=== PATIENT | female | born 1980 | race Caucasian/White ===

== ENCOUNTER → 2017-01-16 | Outpatient (CLI) | payer MEDICARE ==
--- NOTE | 2017-01-16 10:14 | XR ---
EXAMINATION TYPE: XR chest 2V DATE OF EXAM: 01/16/2017 10:09 AM COMPARISON: NONE HISTORY: Chest pain TECHNIQUE: Frontal and lateral views of the chest are obtained. FINDINGS: There is no focal air space opacity, pleural effusion, or pneumothorax seen. The cardiac silhouette size is within normal limits. The osseous structures are intact. IMPRESSION: No acute cardiopulmonary process.
== END | disposition home or self-care (01) ==
LOC: RADXRMAIN 09:57
PROVIDERS: ATTEND Family Medicine
DX: R07.89 Other chest pain (principal)
CPT/HCPCS: 71020

== ENCOUNTER → 2017-06-15 | Outpatient (CLI) | payer MEDICARE ==
--- NOTE | 2017-06-15 09:23 | XR ---
EXAMINATION TYPE: XR knee limited LT DATE OF EXAM: 06/15/2017 CLINICAL HISTORY: Left knee pain and swelling. TECHNIQUE: 2 views of the left knee are obtained. COMPARISON: None. FINDINGS: There is no acute fracture/dislocation evident in left knee. The tri-compartment joint sp aces appear within normal limits. The overlying soft tissue appears unremarkable. IMPRESSION: Unremarkable study.
== END | disposition home or self-care (01) ==
LOC: RADXRMAIN 08:54
PROVIDERS: ATTEND Family Medicine
DX: M25.562 Pain in left knee (principal)

== ENCOUNTER → 2017-07-15 | Outpatient (CLI) | payer MEDICARE ==
--- NOTE | 2017-07-15 12:30 | MR ---
EXAMINATION TYPE: MR knee LT wo con DATE OF EXAM: 07/15/2017 COMPARISON: 06/15/2017 HISTORY: Inner and outer left knee pain and swelling with bruising after sitting down and flexing her knee. Pain has persisted for 6 months. Negative radiographs. TECHNIQUE: Multiplanar, multisequence imaging of the right knee is performed without IV contrast. FINDINGS: MEDIAL MENISCUS: There is a longitudinal tear of the posterior horn of the medial meniscus extending into the meniscal body with associated 7.0 x 2.0 mm posterior meniscal cyst. Tear also extends into t he posterior root although the anterior horn appears preserved and of normal signal morphology and si ze. Associated 3 mm meniscal extrusion. LATERAL MENISCUS: Anterior and posterior horns are intact without tear. CRUCIATE LIGAMENTS: The anterior and posterior cruciate ligaments are intact and unremarkable. COLLATERAL LIGAMENTS: The medial collateral ligament and lateral collateral ligament complex are inta ct and unremarkable. EXTENSOR MECHANISM: Visualized quadriceps and patellar tendons are intact. EFFUSION: Small amount of physiologic fluid is seen. No joint effusion. POPLITEAL CYST: No significant popliteal/teran cyst. TRICOMPARTMENT SPACES: Joint spaces are maintained. CARTILAGE: Focal full-thickness cartilaginous defect of the nonweightbearing surface of the anterior lateral femoral condyle with underlying osteochondral defect, appearing stable measures 0.4 x 0.6 cm. Trochlear cartilage and medial compartment cartilage are unremarkable. BONE MARROW SIGNAL: No focal abnormal marrow signal is appreciated. OTHER: Minimal high is seen on the fluid sensitive sequence within the insertional fibers of the shelbi imembranosus relating to mild tendinopathy. IMPRESSION: 1. Longitudinal tear of the posterior horn of the medial meniscus extending into the meniscal body an d posterior root with associated 3 mm meniscal extrusion and 7 x 2 mm meniscal cyst. 2. Focal 0.4 x 0.6 cm full-thickness cartilaginous defect in the nonweightbearing surface of the ante rior lateral femoral condyle with underlying osteochondral defect, appearing stable. 3. Mild semimembranosus tendinopathy.
== END ==
LOC: RADMRIMAIN 10:30
PROVIDERS: ATTEND Family Medicine
DX: M25.562 Pain in left knee (principal); M23.222 Derangement of posterior horn of medial meniscus due to old tear or injury, left knee

== ENCOUNTER → 2017-08-21 | Outpatient (CLI) | payer MEDICARE | END | disposition home or self-care (01) | LOC: LABPAT 11:16 | PROVIDERS: ATTEND Family Medicine | DX: Z01.810 Encounter for preprocedural cardiovascular examination (principal) | CPT/HCPCS: 93005 ==

== ENCOUNTER → 2017-12-29 | Outpatient (CLI) | payer MEDICARE ==
[2017-12-29 15:19] VITALS: BP 123/77; PULSE 86; RESP 15; TEMP 98; BMI 41.0
--- NOTE | 2017-12-29 16:30 | P.HPBAR ---
Bariatric H&P - History & Physicial H&P Date: 12/29/17 History & Physicial: Visit/CC: sleeve consult Patient initial contact: Initial weight: 127.868 kg Initial weight in pounds: 281.90 Height: 5 ft 9.5 in Initial BMI: 41.0 Last weight: Current weight: 127.868 kg Current weight in pounds: 281.90 Current BMI: 41.0 [place] body weight (based on NIH guidelines): 66.905 kg Excess body weight loss: 0.0% The patient is a 37 year-old F who presents for Bariatric Assessment. Patient seen in the bariatric center today as a new patient. She is interested in sleeve gastrectomy. She went to a seminar this November. She believes the gastric bypass is too invasive for her. She has other medical issues including fibromyalgia and irritable bowel syndrome and believes the gastric bypass would interfere with those medical issues. Patient also suffers from osteoarthritis, degenerative disc disease, hypertension, and neuropathy. These medical conditions are likely in part related to her morbid obesity. She has a history of mild reflux symptoms. She was told in the past she has a hiatal hernia on endoscopy. Denies dysphagia, no history of DVT. Her primary care physician per the patient is supportive of her decision to have bariatric surgery. She does exercise daily. Her heaviest weight was 325. Review of Systems The patient denies any acute changes in vision or hearing, no dysphagia or odynophagia, no chest pain or shortness of breath, no dysuria or hematuria, no headache, no runny nose, no rectal bleeding or melena, no unexplained weight loss Past Medical History Past Medical History: Fibromyalgia, GERD/Reflux, Hyperlipidemia, Hypertension, Neurologic Disorder, Sleep Apnea/CPAP/BIPAP, Thyroid Disorder Additional Past Medical History / Comment(s): IBS, Hiatial hernia, DDD, occipital/trigeminal neuralgia, hypothyroidism, auto-immune discorder, chronic sinusitis History of Any Multi-Drug Resistant Organisms: None Reported Past Surgical History: Ablation, Cholecystectomy, Hysterectomy, Orthopedic Surgery, Tubal Ligation Additional Past Surgical History / Comment(s): Left knee arthroscopy (Aug 2017) ; Sinus surgery (2014), Uterine ablation Past Anesthesia/Blood Transfusion Reactions: Postoperative Nausea & Vomiting ( PONV) Additional Past Anesthesia/Blood Transfusion Reaction / Comm: does well with zofran prophylactic and has needed Benadryl for flushing Past Psychological History: Anxiety, Depression Smoking Status: Never smoker Past Alcohol Use History: None Reported Past Drug Use History: None Reported - Past Family History Father Family Medical History: Congestive Heart Failure (CHF), Fibromyalgia Additional Family Medical History / Comment(s): at age 42 from CHF, mental disorders Mother Family Medical History: Hypertension, Osteoarthritis (OA), Thyroid Disorder Additional Family Medical History / Comment(s): morbid obesity, bilateral knee sx d/t excess weight Surgical - Exam Vital Signs Temp Pulse Resp BP 98.0 F 86 15 123/77 12/29/17 15:11 12/29/17 15:11 12/29/17 15:11 12/29/17 15:11 Physical exam: General: Well-developed, well-nourished HEENT: Normocephalic, sclerae nonicteric Abdomen: Nontender, nondistended Extremities: No edema Neuro: Alert and oriented Bariatric Assessment & Plan (1) Morbid obesity Narrative/Plan: Clinical scenario discussed with the patient in detail. Various bariatric procedures were discussed in detail as well. Patient remains interested in sleeve gastrectomy. We'll plan preoperative upper endoscopy. Anticipate simultaneous repair of hiatal hernia at the time of sleeve gastrectomy. The risks of bleeding, infection, stenosis, stricture, leak, abscess, fistula formation, peritonitis, poor weight loss, reflux, vomiting, conversion to an open procedure, aborting sleeve gastrectomy, [place], PE, DVT, and were discussed. The patient understands and wishes to proceed. Status: Acute Bariatric Checklist Checklist: Plan: Checklist: EGD: 1. Hiatal hernia: 2. H. Pylori: HgbA1c: Vitamin D: Smoking: Never smoker Primary care physician referral: clemencia pitts Psychiatry clearance: Cardiology clearance: Sleep study: Diet journal: VTE risk score: VTE risk level: Rehab needs at discharge:
== END | disposition home or self-care (01) ==
LOC: BARWHC3 14:58
PROVIDERS: ATTEND Surgery
DX: Z48.815 Encounter for surgical aftercare following surgery on the digestive system (principal); E66.01 Morbid (severe) obesity due to excess calories; Z68.41 Body mass index [BMI] 40.0-44.9, adult
CPT/HCPCS: 99211

== ENCOUNTER 2018-01-08 12:50 | Day surgery (SDC) | payer MEDICARE ==
[2018-01-06 15:48] VITALS: BMI 40.7
[~2018-01-08 12:50] MED LIST: LACTATED RINGERS 1,000 ML IV SCH
[2018-01-08 13:25] VITALS: TEMP 97.9
[2018-01-08] MEDS ORDERED: LIDOCAINE 1% 20 ML VIAL (10MG/ML) FOR IV START INTRADERMA ONE (13:25)
[2018-01-08] MEDS ORDERED: LIDOCAINE 1% INJ 10MG/ML (20 ML MDV) ONE (14:01)
[2018-01-08] MEDS ORDERED: PROPOFOL 10 MG/ML 20 ML VIAL IV ONE (14:01)
--- NOTE | 2018-01-08 14:18 | P.GSHP ---
History of Present Illness H&P Date: 01/08/18 Chief Complaint: GERD Patient here today for upper endoscopy. She has a history of prior hiatal hernia. Some reflux at times. Seen for bariatric surgery. Past Medical History Past Medical History: Fibromyalgia, GERD/Reflux, Hyperlipidemia, Hypertension, Neurologic Disorder, Sleep Apnea/CPAP/BIPAP, Thyroid Disorder Additional Past Medical History / Comment(s): IBS, Hiatial hernia, DDD, occipital/trigeminal neuralgia, kidney stone,hypothyroidism, auto-immune disorder, chronic sinusitis History of Any Multi-Drug Resistant Organisms: None Reported Past Surgical History: Cholecystectomy, Hysterectomy, Orthopedic Surgery, Tubal Ligation, Uterine Ablation Additional Past Surgical History / Comment(s): Left knee arthroscopy (Aug 2017) ; Sinus surgery (2014) Past Anesthesia/Blood Transfusion Reactions: Postoperative Nausea & Vomiting ( PONV) Additional Past Anesthesia/Blood Transfusion Reaction / Comment(s): does well with zofran prophylaxis and has needed Benadryl for flushing Past Psychological History: Anxiety, Depression Smoking Status: Never smoker Past Alcohol Use History: None Reported Past Drug Use History: None Reported - Past Family History Mother Family Medical History: No Reported History Father Family Medical History: Congestive Heart Failure (CHF), Fibromyalgia Additional Family Medical History / Comment(s): at age 42 from CHF, mental disorders Medications and Allergies Home Medications Medication Instructions Recorded Confirmed Type Hydrochlorothiazide 25 mg PO PC-LUNCH 09/08/17 01/06/18 History Lansoprazole [Prevacid] 30 mg PO HS 09/08/17 01/06/18 History Levothyroxine Sodium [Tirosint] 100 mcg PO DAILY 09/08/17 01/06/18 History Pregabalin [Lyrica] 200 mg PO BID 09/08/17 01/06/18 History Simvastatin [Zocor] 40 mg PO HS 09/08/17 01/06/18 History Venlafaxine HCl ER [Effexor XR] 150 mg PO HS 09/08/17 01/06/18 History Cyclobenzaprine [Flexeril] 10 mg PO Q12HR PRN 12/29/17 01/06/18 History Allergies Allergy/AdvReac Type Severity Reaction Status Date / Time tide Allergy swelling Uncoded 01/06/18 15:46 and rash Surgical - Exam Vital Signs Temp Pulse Resp BP Pulse Ox 97.9 F 78 18 119/74 98 01/08/18 13:18 01/08/18 13:18 01/08/18 13:18 01/08/18 13:18 01/08/18 13:18 Physical exam: General: Well-developed, well-nourished HEENT: Normocephalic, sclerae nonicteric Abdomen: Nontender, nondistended Extremities: No edema Neuro: Alert and oriented Assessment and Plan (1) GERD (gastroesophageal reflux disease) Narrative/Plan: Will proceed with upper endoscopy at this time Current Visit: Yes Status: Acute Code(s): K21.9 - GASTRO-ESOPHAGEAL REFLUX DISEASE WITHOUT ESOPHAGITIS SNOMED Code(s): 619196321
[2018-01-08 14:32] VITALS: BP 129/66; RESP 16
--- NOTE | 2018-01-08 14:34 | P.PCN ---
Date of Procedure: 01/08/18 Procedure(s) Performed: PREOPERATIVE DIAGNOSIS: GERD, presurgical POSTOPERATIVE DIAGNOSIS: Gastritis, small moderate size hiatal hernia PROCEDURE: EGD with biopsy ANESTHESIA: MAC SURGEON: Armando Hernandez M.D. SPECIMENS: Antrum ENDOSCOPIC PROCEDURE: The patient was placed on the endoscopy table in the left decubitus position. The Olympus gastroscope was inserted into the oropharynx and passed under direct visualization to the region of the third portion of the duodenum. From that point the scope was slowly withdrawn inspecting all surfaces carefully. There were no neoplastic inflammatory or polypoid lesions throughout the duodenum. The pylorus was widely patent. The stomach was carefully inspected. There was mild gastritis present diffusely. A biopsy of the antrum took place to rule out H. pylori. Retroflexion revealed a small to moderate sized hiatal hernia. The GE junction was present about 2 cm above the diaphragmatic hiatus. The esophagus was then carefully examined. There were no neoplastic inflammatory or polypoid lesions throughout the visualized esophagus. The patient was then taken to the recovery room in stable condition per anesthesia guidelines. Recommendations: Continue antiacids. Await biopsy results. Follow-up with the bariatric center.
[2018-01-08 14:51] VITALS: PULSE 76
== END 2018-01-08 15:16 | disposition home or self-care (01) ==
LOC: ORWHC2ENDO 12:50
PROVIDERS: ATTEND Surgery
DX: K29.50 Unspecified chronic gastritis without bleeding (principal); K21.9 Gastro-esophageal reflux disease without esophagitis; K44.9 Diaphragmatic hernia without obstruction or gangrene; K58.9 Irritable bowel syndrome, unspecified; I10 Essential (primary) hypertension; F41.9 Anxiety disorder, unspecified; F32.9 Major depressive disorder, single episode, unspecified; M79.7 Fibromyalgia; E78.5 Hyperlipidemia, unspecified; G47.30 Sleep apnea, unspecified; E03.9 Hypothyroidism, unspecified; E66.01 Morbid (severe) obesity due to excess calories; G62.9 Polyneuropathy, unspecified; Z87.442 Personal history of urinary calculi; Z79.899 Other long term (current) drug therapy; Z99.89 Dependence on other enabling machines and devices; Z68.41 Body mass index [BMI] 40.0-44.9, adult
CPT/HCPCS: 81025; 88305; 43239; J2001; J2704

== ENCOUNTER → 2018-01-26 | Outpatient (CLI) | payer MEDICARE ==
[2018-01-26 13:33] VITALS: BP 110/83; PULSE 93; RESP 16; TEMP 98.1; BMI 41.0
--- NOTE | 2018-01-26 16:35 | P.BASOAP ---
Subjective Progress Note Date: 01/26/18 Principal diagnosis: Morbid obesity Patient doing well today. Underwent recent upper endoscopy. Hiatal hernia found at that time. She has her diet class on Thursday. She has a psychiatric evaluation later today. No other changes to the history and physical. Objective - Vital Signs Vital signs: Vital Signs Temp 98.1 F 01/26/18 13:30 Pulse 93 01/26/18 13:30 Resp 16 01/26/18 13:30 BP 110/83 01/26/18 13:30 Pulse Ox Intake & Output 01/25/18 01/26/18 01/26/18 18:59 06:59 18:59 Weight 127.913 kg - Exam Abdomen: Soft, nontender, nondistended Assessment/Plan (1) Morbid obesity Narrative/Plan: Await psychiatric evaluation letter. Patient will attend dietary classes next week. Reviewed the surgical consent form with her in detail today. All questions answered. Will tentatively schedule surgery in the near future. Plan: Date: 01/26/18 Initial Weight: 127.868 kg Initial BMI: 41.0 Current Weight: 127.913 kg Current BMI: 41.0 Type of Surgery: Total Volume in Band: Previous Volume: Volume Removed: Volume Added: Band Size:
== END ==
LOC: BARWHC3 13:00
PROVIDERS: ATTEND Surgery
DX: E66.01 Morbid (severe) obesity due to excess calories (principal); Z68.41 Body mass index [BMI] 40.0-44.9, adult
CPT/HCPCS: 99211

== ENCOUNTER → 2018-02-01 | Outpatient (CLI) | payer MEDICARE ==
[2018-02-01 13:29] VITALS: BMI 42.0
== END | disposition home or self-care (01) ==
LOC: BARWHC3 09:03
PROVIDERS: ATTEND Surgery
DX: E66.01 Morbid (severe) obesity due to excess calories (principal)
CPT/HCPCS: 97804

== ENCOUNTER → 2018-03-04 | Outpatient (CLI) | payer MEDICARE ==
[2018-03-04 15:23] LABS: Basophils % (A) 0 %; Eosinophils # (A) 0.1 k/uL (0-0.7); Eosinophils % (A) 1 %; HCT 39.7 % (34.0-46.0); Lymphocytes % (A) 25 %; MCH 30.7 pg (25.0-35.0); MCHC 35.3 g/dL (31.0-37.0); MCV 86.9 fL (80.0-100.0); Mean Platelet Volume 7.6; Monocytes # (A) 0.5 k/uL (0-1.0); Monocytes % (A) 4 %; Neutrophils # (A) 8.3 k/uL (1.3-7.7); Neutrophils % (A) 69 %; Platelet Count 332 k/uL (150-450); RBC 4.57 m/uL (3.80-5.40); RDW 12.6 % (11.5-15.5); WBC 12.1 k/uL (3.8-10.6)
[2018-03-04 15:36] LABS: ALT 30 U/L (9-52); AST 29 U/L (14-36); Albumin 4.7 g/dL (3.5-5.0); Alkaline Phosphatase 66 U/L (38-126); Anion Gap 16 mmol/L; Blood Urea Nitrogen 21 mg/dL (7-17); Calcium 9.9 mg/dL (8.4-10.2); Carbon Dioxide 30 mmol/L (22-30); Chloride 98 mmol/L (98-107); Glucose 88 mg/dL (74-99); Sodium 144 mmol/L (137-145); Total Bilirubin 0.4 mg/dL (0.2-1.3); Total Protein 7.5 g/dL (6.3-8.2)
== END | disposition home or self-care (01) ==
LOC: LABPAT 14:08
PROVIDERS: ATTEND Surgery
DX: Z01.818 Encounter for other preprocedural examination (principal); Z01.812 Encounter for preprocedural laboratory examination
CPT/HCPCS: 36415; 80053; 85025; 93005

== ENCOUNTER 2018-03-12 09:45 | Inpatient (IN) | payer MEDICARE ==
[2018-03-03 13:05] VITALS: BMI 39.7
--- NOTE | 2018-03-12 07:53 | P.GSHP ---
History of Present Illness H&P Date: 03/12/18 Chief Complaint: Morbid obesity Patient initially seen in the bariatric clinic earlier this year. She has suffered with morbid obesity for the majority of her life. She is interested in sleeve gastrectomy. She suffers from osteoarthritis and degenerative disc disease hypertension and neuropathy. She has mild reflux symptoms. Recent upper endoscopy showed a small to moderate-sized hiatal hernia. No history of DVT or dysphagia. Past Medical History Past Medical History: Fibromyalgia, GERD/Reflux, Hyperlipidemia, Hypertension, Neurologic Disorder, Sleep Apnea/CPAP/BIPAP, Thyroid Disorder Additional Past Medical History / Comment(s): IBS, Hiatial hernia, DDD, occipital/trigeminal neuralgia, kidney stone, auto-immune disorder, chronic sinusitis, multiple nueopathys of the extremities History of Any Multi-Drug Resistant Organisms: None Reported Past Surgical History: Cholecystectomy, Orthopedic Surgery, Tubal Ligation, Uterine Ablation Additional Past Surgical History / Comment(s): Left knee arthroscopy (Aug 2017) ; Sinus surgery (2014)kidney stone removal laparoscopic Past Anesthesia/Blood Transfusion Reactions: Postoperative Nausea & Vomiting ( PONV) Additional Past Anesthesia/Blood Transfusion Reaction / Comment(s): does well with zofran prophylaxis and has needed Benadryl for flushing Smoking Status: Never smoker - Past Family History Mother Family Medical History: No Reported History Father Family Medical History: Congestive Heart Failure (CHF), Fibromyalgia Additional Family Medical History / Comment(s): at age 42 from CHF, mental disorders Medications and Allergies Home Medications Medication Instructions Recorded Confirmed Type Hydrochlorothiazide 25 mg PO PC-LUNCH 09/08/17 03/03/18 History Lansoprazole [Prevacid] 30 mg PO HS 09/08/17 03/03/18 History Levothyroxine Sodium [Tirosint] 100 mcg PO QAM 09/08/17 03/03/18 History Pregabalin [Lyrica] 400 mg PO HS 09/08/17 03/03/18 History Simvastatin [Zocor] 40 mg PO HS 09/08/17 03/03/18 History Venlafaxine HCl ER [Effexor XR] 150 mg PO HS 09/08/17 03/03/18 History Cyclobenzaprine [Flexeril] 10 mg PO Q12HR PRN 12/29/17 03/03/18 History Biotin 5 mg PO DAILY 03/03/18 03/03/18 History Calcium Citrate 1,200 mg PO DAILY 03/03/18 03/03/18 History Multivit with Calcium,Iron,Min 1 each PO DAILY 03/03/18 03/03/18 History [Women's Multivitamin] Allergies Allergy/AdvReac Type Severity Reaction Status Date / Time tide Allergy swelling Uncoded 03/03/18 12:51 and rash Surgical - Exam Physical exam: General: Well-developed, well-nourished HEENT: Normocephalic, sclerae nonicteric Abdomen: Nontender, nondistended Extremities: No edema Neuro: Alert and oriented Assessment and Plan (1) Morbid obesity Narrative/Plan: Will proceed with laparoscopic sleeve gastrectomy with repair hiatal hernia at this time. The risks of bleeding, infection, stenosis, stricture, leak, abscess , fistula formation, peritonitis, poor weight loss, reflux, vomiting, recurrent hiatal hernia, conversion to an open procedure, aborting sleeve gastrectomy, [place] , PE, DVT, and were discussed. The patient understands and wishes to proceed. Status: Acute Code(s): E66.01 - MORBID (SEVERE) OBESITY DUE TO EXCESS CALORIES SNOMED Code(s): 161396503
--- NOTE | 2018-03-12 08:26 | P.PCN ---
Date of Procedure: 03/12/18 Procedure(s) Performed: PREOPERATIVE DIAGNOSIS: Colon cancer screening POSTOPERATIVE DIAGNOSIS: Normal exam PROCEDURE: Colonoscopy ANESTHESIA: MAC SURGEON: Armando Hernandez M.D. SPECIMENS: None ENDOSCOPIC PROCEDURE: The patient was placed on the endoscopy table in the left decubitus position. The Olympus colonoscope was inserted into the anus and passed under direct visualization to the base of the cecum. The appendiceal orifice was visualized. From that point the scope was slowly withdrawn inspecting all surfaces carefully. There were no neoplastic inflammatory or polypoid lesions throughout the cecum, ascending, transverse, descending, sigmoid and rectum. There was no diverticulosis noted. Digital rectal examination was normal. The patient was taken to the recovery room in stable condition per anesthesia guidelines. RECOMMENDATIONS: Increase fiber.
[~2018-03-12 09:45] MED LIST changes: +DEXAMETHASONE SOD PHOSPHATE 10 MG/ML 1 ML VIAL IV ONE; +ENOXAPARIN 40 MG/0.4 ML SYRINGE SQ ONE; -LACTATED RINGERS 1,000 ML IV SCH; +MIDAZOLAM 2 MG/2 ML VIAL IV PRN; +ONDANSETRON ODT 4 MG TAB PO ONE; +SCOPOLAMINE 1.5MG/72HR PATCH TRANSDERM ONE; +ceFAZolin IN SWFI 2 GM/20 ML SYRINGE IVP ONE; +fentaNYL (PF) 50 MCG/ML 2 ML AMP IV PRN
[2018-03-12] MEDS: LACTATED RINGERS 1,000 ML IV SCH (12:21)
[2018-03-12] MEDS ORDERED: LIDOCAINE 1% 20 ML VIAL (10MG/ML) FOR IV START INTRADERMA ONE (12:31)
[2018-03-12] MEDS ORDERED: LIDOCAINE 1% INJ 10MG/ML (20 ML MDV) ONE (13:17)
[2018-03-12] MEDS ORDERED: PROPOFOL 10 MG/ML 20 ML VIAL IV ONE (13:17)
[2018-03-12] MEDS ORDERED: SUCCINYLCHOLINE CHLORIDE 100 MG/5 ML SYR IV ONE (13:17)
[2018-03-12] MEDS ORDERED: fentaNYL (PF) 50 MCG/ML 2 ML AMP ONE (13:17)
[2018-03-12] MEDS ORDERED: ROCURONIUM BROMIDE 10 MG/ML 10 ML VIAL IV ONE (13:17)
[2018-03-12] MEDS ORDERED: MORPHINE SULFATE 10 MG/ML SYRINGE ONE (13:17)
[2018-03-12] MEDS ORDERED: MIDAZOLAM 2 MG/2 ML VIAL ONE (13:17)
[2018-03-12] MEDS ORDERED: BUPIVACAINE (PF) 0.25% 30 ML VIAL SQ ONE (13:52)
[2018-03-12] MEDS ORDERED: LACTATED RINGERS 1,000 ML IV ONE (15:32)
[2018-03-12] MEDS ORDERED: diphenhydrAMINE 50 MG/ML 1 ML VIAL IVP PRN (15:37)
[2018-03-12] MEDS ORDERED: ACETAMINOPHEN IV (For NPO) 1,000 MG in EMPTY BAG 1 BAG IVPB ONE (15:37)
[2018-03-12] MEDS ORDERED: NALOXONE 0.4 MG/ML 1 ML VIAL IV PRN (15:37)
--- NOTE | 2018-03-12 15:44 | P.OP ---
Date of Procedure: 03/12/18 Procedure(s) Performed: PREOPERATIVE DIAGNOSIS: Morbid obesity, arthritis, hypertension, GERD POSTOPERATIVE DIAGNOSIS: Same PROCEDURE: Laparoscopic sleeve gastrectomy [with repair hiatal hernia] SURGEON: David EBL: Minimal ANESTHESIA: General COMPLICATIONS: None OPERATIVE PROCEDURE: Patient was placed in the operating table in the supine position. She was placed under general anesthesia at that time. The abdomen was prepped and draped in sterile fashion after the patient was placed in lithotomy. A 5 mm optical trocar was used to enter the abdominal cavity in the left upper quadrant. Insufflation took place to 15 millimeters mercury. An additional right subxiphoid 5 mm trocar was then placed under direct relation and then removed. 2 additional 5 mm trochars were placed in the right upper quadrant and left upper quadrant under direct visualization and a 15 mm trocar in the supraumbilical location. The liver was retracted using a medium Regina liver retractor through the right subxiphoid trocar site. The hiatus was inspected. The patient had a small sized hiatal hernia. The patient had a prominent a variant left hepatic artery traversing the pars flaccid. This was left intact for the procedure. Circumferentially the phrenoesophageal ligament was incised identifying the actual defect. The right diaphragmatic crura was well visualized. I was able to bluntly dissect and visualize the left diaphragmatic crura. At that point I moved to the mid aspect of the greater curvature the stomach. The short gastric vasculature was divided using a LigaSure device proximally. I then switched and divided the short gastrics distally to a 3-4 cm from the pylorus. The dissection took place up to the left diaphragmatic crura at that point. The posterior short gastrics were likewise divided using the LigaSure device. Once the stomach was fully mobilized the blunt tipped 40-Belarusian bougie dilator was advanced into the stomach and advanced all the way to the prepyloric location. A black echelon 60 stapler was utilized and fired tangentially across the antrum taking care to avoid narrowing at the incisura angularis. Subsequent firings of the stapler took place. A total of 5 green echelon 60 staplers with seam guard took place proximally staying on the outer edge of our dilator. Once we reached the most proximal portion of the stomach a single firing of the gold echelon 60 stapler without seen guard took place. This only covered a distance of about 1.5 cm. The oral gastric tube was reinserted. The stomach was insufflated with approximately 100 mL of methylene blue. No evidence of leak or obstruction was seen. The hiatus was then addressed once again. A single 2-0 Ethibond was used to reapproximate the diaphragmatic crura. This adequately closed the diaphragmatic hernia. Tisseel fibrin glue was then sprayed along the entire length of the staple line. No bleeding was identified. The distal aspect of the sleeve was then reapproximated to the gastrosplenic and gastrocolic ligament using a short running 20 strata fix suture. This was done to prevent kinking or twisting of the sleeve. The stomach remnant was removed from the 15 mm trocar site without difficulty. The fascia at the 15 more site was closed using interrupted 0 Vicryl sutures with the laparoscopic suture passer and Cash Toya technique. The insufflation was evacuated. The skin at all 5 incisions were closed using 4-0 Monocryl sutures. Steri-Strips and sterile dressings were then applied. DISPOSITION: Stable to recovery room
[2018-03-12] MEDS ORDERED: ONDANSETRON 4 MG/2 ML VIAL IVP ONE (16:12)
[2018-03-12] MEDS ORDERED: MORPHINE SULFATE 4 MG/0.8 ML SYRINGE (INJ) IVP ONE ×2 (16:12→16:25)
[2018-03-12] MEDS: ALBUTEROL NEBULIZED 2.5 MG/3 ML INHALATION SCH ×2 (17:37→19:17)
[2018-03-12] MEDS: KETOROLAC 30 MG/ML 1 ML VIAL IVP SCH (17:45)
[2018-03-12] MEDS: HYOSCYAMINE ORAL DROPS 1.875 MG/15 ML BOTTLE PO PRN (18:23)
[2018-03-12] MEDS ORDERED: CYCLOBENZAPRINE 10 MG TAB PO PRN (19:39)
--- NOTE | 2018-03-12 20:38 | CONS ---
CONSULTATION DATE OF CONSULTATION: 03/12/18 REASON FOR CONSULTATION: Medical management requested by Dr. Hernandez. CONSULTATION: A very pleasant 37-year-old patient of Dr. Cartwright. The patient's chronic stable medical conditions include depression, hypertension, hyperlipidemia, hypothyroid, fibromyalgia, GERD, obstructive sleep apnea, and irritable bowel syndrome. The patient has an undefined autoimmune disorder not classified. Also, peripheral neuropathy, which is stable. The patient did undergo sleeve gastrectomy with hiatal hernia repair. Slight discomfort at the operative site. No nausea, vomiting, on ice popsicles. Lying in bed. REVIEW OF SYSTEMS: CONSTITUTIONAL: None. HEENT none. Respiratory none. Cardiovascular none. Gastrointestinal heartburn. Genitourinary none. Musculoskeletal: Aches and pains in joints. Dermatological and hematologic, lymphatics none. Psychiatry none. Neurological: Numbness and tingling especially in the lower extremity. PAST MEDICAL HISTORY: Of depression, hypertension, hyperlipidemia, hypothyroid, fibromyalgia, GERD, obstructive sleep apnea, irritable bowel syndrome. PAST SURGICAL HISTORY: Cholecystectomy, orthopedic surgery, tubal ligation, uterine ablation, left knee arthroscopy, kidney stone removed laparoscopically. PSYCH HISTORY: History of anxiety and depression. SOCIAL HISTORY: Does not smoke or drink alcohol. Lives with her and 3 children. FAMILY HISTORY: Of CHF and mental disorders. MEDICATIONS: Home medications: 1. Effexor XR 150 mg q.h.s. 2. Zocor 40 mg q.h.s. 3. Lyrica 4 mg q.h.s. 4. Multivitamin 1 tab p.o. daily. 5. Tirosint 100 mcg p.o. daily. 6. Prevacid 10 mg q.h.s. 7. Hydrochlorothiazide 25 mg before lunch. 8. Flexeril 10 mg p.o. q.12 p.r.n. 9. Calcium citrate 200 mg p.o. daily. 10.Biotin 5 mg p.o. daily. 11.Simethicone 40 mg p.o. q.h.s. p.r.n. 12.Zofran 4 mg q.8h p.r.n. 13.Prilosec 20 mg p.o. with breakfast. 14.Summit 5 1-2 tablets q.4 p.r.n. 15.Dulcolax 5 mg daily p.r.n. ALLERGIES: To TIDE. PHYSICAL EXAMINATION: Afebrile, pulse 87, respiratory rate 16, blood pressure 132/72, pulse ox 99% on room air. General appearance: Well built, BMI 39.7. Propped up in bed, awake, comfortable. Eyes pupils equal. Conjunctivae normal. HEENT external appearance of nose and ears normal. Oral cavity normal. Neck JVD not raised. Mass not palpable. Respiratory effort normal. Lungs fair entry. Cardiovascular 1st and 2nd sounds normal. No edema. Abdomen mild tenderness, soft, liver and spleen not palpable. Bowel sounds sluggish. Lymphatics: No lymph nodes palpable in the neck and axillae. Psychiatry: Alert and oriented times three. Mood and affect normal. Neurological: Pupils equal. Cranial nerves grossly intact. Power and sensation grossly intact. Dermatological: Patient has got tattoos. Preop blood work 03/04/2018 shows a white count 12.1, hemoglobin 14, potassium 4.0, BUN 21, creatinine 0.90. ASSESSMENT: 1. Status post sleeve gastrectomy and hiatal hernia repair. 2. Depression/anxiety not otherwise specified. 3. Hyperlipidemia. 4. Hypothyroidism. 5. Essential hypertension. 6. Chronic fibromyalgia. 7. Gastroesophageal reflux disease. 8. Obstructive sleep apnea uses CPAP machine. 9. Irritable bowel syndrome. 10.Autoimmune disorder non classified. 11.Peripheral neuropathy cause unknown. 12.Obesity; BMI 39.7. PLAN: Patient's home medications are resumed. The pills can be taken when okayed by Dr. Hernandez. The patient has got Venodyne boots in place. The patient should follow with Dr. Cartwright upon discharge. Questions were answered. Thank you Dr. Hernandez. Copy to Dr. Cartwright. MMODL / IJN: [id number] /
[2018-03-12] MEDS: ONDANSETRON 4 MG/2 ML VIAL IVP PRN (21:33)
[2018-03-12] MEDS: MORPHINE SULFATE 4 MG/0.8 ML SYRINGE (INJ) IVP PRN (22:10)
[2018-03-12] MEDS: PREGABALIN 100 MG CAP PO SCH (22:30)
[2018-03-12] MEDS: VENLAFAXINE HCL ER 150 MG CAP PO SCH (22:31)
[2018-03-12] MEDS: SIMETHICONE 40 MG/0.6 ML DROPS 2,000 MG/30 ML BOTTLE PO PRN (22:33)
[2018-03-13] MEDS: KETOROLAC 30 MG/ML 1 ML VIAL IVP SCH ×4 (00:18→17:30)
[2018-03-13] MEDS: MORPHINE SULFATE 4 MG/0.8 ML SYRINGE (INJ) IVP PRN (03:49)
[2018-03-13 07:03] LABS: HCT 36.1 % (34.0-46.0); Hyperchromasia Slight; MCH 31.5 pg (25.0-35.0); MCV 87.4 fL (80.0-100.0); Mean Platelet Volume 7.1; Platelet Count 294 k/uL (150-450); RBC 4.13 m/uL (3.80-5.40); RDW 12.8 % (11.5-15.5); WBC 11.9 k/uL (3.8-10.6)
[2018-03-13 07:04] LABS: Basophils % (A) 0 %; Eosinophils # (A) 0.1 k/uL (0-0.7); Eosinophils % (A) 1 %; Lymphocytes # (A) 2.7 k/uL (1.0-4.8); Lymphocytes % (A) 23 %; Monocytes # (A) 0.6 k/uL (0-1.0); Monocytes % (A) 5 %; Neutrophils # (A) 8.4 k/uL (1.3-7.7); Neutrophils % (A) 70 %
[2018-03-13] MEDS: ONDANSETRON 4 MG/2 ML VIAL IVP PRN (07:43)
[2018-03-13] MEDS: LACTATED RINGERS 1,000 ML IV SCH (07:46)
[2018-03-13 07:48] LABS: Anion Gap 11 mmol/L; Blood Urea Nitrogen 13 mg/dL (7-17); Calcium 8.3 mg/dL (8.4-10.2); Carbon Dioxide 27 mmol/L (22-30); Chloride 103 mmol/L (98-107); Magnesium 2.1 mg/dL (1.6-2.3); Phosphorus 3.3 mg/dL (2.5-4.5); Potassium 3.3 mmol/L (3.5-5.1); Sodium 141 mmol/L (137-145)
[2018-03-13] MEDS: ALBUTEROL NEBULIZED 2.5 MG/3 ML INHALATION SCH ×4 (07:56→19:22)
--- NOTE | 2018-03-13 08:22 | FL ---
EXAMINATION TYPE: FL UGI DATE OF EXAM ORDERED: 03/13/2018 8:17 AM HISTORY: Gastric sleeve procedure. COMPARISON: None. FINDINGS: The patient drank contrast with ease. There is moderate holdup of barium at the GE junctio n. There is a small amount of free air. The ligament of Treitz is in normal location. IMPRESSION: STATUS POST GASTRIC SLEEVE PROCEDURE.
--- NOTE | 2018-03-13 09:28 | P.PN ---
Subjective Progress Note Date: 03/13/18 Principal diagnosis: Morbid obesity Patient doing well today. White blood cell count 11.9. Upper GI today shows no evidence of leak or obstruction. Mild nausea. Some chest pain and radiation to the back likely from the hiatal hernia portion of the repair. Objective - Vital Signs Vital signs: Vital Signs Temp 98 F 03/13/18 07:00 Pulse 76 03/13/18 07:00 Resp 14 03/13/18 07:00 BP 139/77 03/13/18 07:00 Pulse Ox 100 03/13/18 07:57 Intake & Output 03/12/18 03/13/18 03/13/18 18:59 06:59 18:59 Intake Total 1850 245 Output Total 10 Balance 1840 245 Weight 129.274 kg Intake: IV 1850 Intake, IV Titration 100 Amount ACETAMINOPHEN IV (For NPO 100 ) 1,000 mg In Empty Bag 1 bag @ 400 mls/hr IVPB ONCE ONE Rx#:[id number] Oral 145 Output: Estimated Blood Loss 10 Other: # Voids 2 - Exam Abdomen: Soft, nondistended, mild incisional tenderness - Labs CBC & Chem 7: 03/13/18 06:43 03/13/18 06:43 Labs: Abnormal Lab Results - Last 24 Hours (Table) 03/13/18 03/13/18 Range/Units 06:43 06:43 WBC 11.9 H (3.8-10.6) k/uL Neutrophils # 8.4 H (1.3-7.7) k/uL Potassium 3.3 L (3.5-5.1) mmol/L Calcium 8.3 L (8.4-10.2) mg/dL Assessment and Plan (1) Morbid obesity Narrative/Plan: (To clear liquids. Ambulate. Possible discharge tomorrow. Current Visit: No Status: Acute Code(s): E66.01 - MORBID (SEVERE) OBESITY DUE TO EXCESS CALORIES SNOMED Code(s): 381776973
[2018-03-13] MEDS: LEVOTHYROXINE 100 MCG TAB PO SCH (09:40)
[2018-03-13] MEDS: PANTOPRAZOLE 40 MG/10 ML VIAL IV SCH (09:40)
[2018-03-13] MEDS: ENOXAPARIN 40 MG/0.4 ML SYRINGE SQ SCH ×2 (09:41→22:32)
[2018-03-13] MEDS: VENLAFAXINE HCL ER 150 MG CAP PO SCH (17:29)
[2018-03-13] MEDS: PREGABALIN 100 MG CAP PO SCH (17:30)
[2018-03-13] MEDS: SIMETHICONE 40 MG/0.6 ML DROPS 2,000 MG/30 ML BOTTLE PO PRN (17:35)
[2018-03-13] MEDS: HYOSCYAMINE ORAL DROPS 1.875 MG/15 ML BOTTLE PO PRN (17:36)
[2018-03-13 23:38] VITALS: RESP 18
[2018-03-14] MEDS: KETOROLAC 30 MG/ML 1 ML VIAL IVP SCH ×3 (01:19→13:12)
[2018-03-14] MEDS: LACTATED RINGERS 1,000 ML IV SCH (05:54)
[2018-03-14] MEDS: LEVOTHYROXINE 100 MCG TAB PO SCH (06:53)
[2018-03-14] MEDS: ALBUTEROL NEBULIZED 2.5 MG/3 ML INHALATION SCH ×3 (07:14→15:50)
[2018-03-14 07:15] LABS: Basophils % (A) 0 %; Eosinophils # (A) 0.1 k/uL (0-0.7); Eosinophils % (A) 1 %; HCT 35.9 % (34.0-46.0); HGB 12.5 gm/dL (11.4-16.0); Lymphocytes # (A) 2.2 k/uL (1.0-4.8); Lymphocytes % (A) 22 %; MCH 30.6 pg (25.0-35.0); MCHC 34.8 g/dL (31.0-37.0); MCV 87.9 fL (80.0-100.0); Mean Platelet Volume 7.7; Monocytes # (A) 0.5 k/uL (0-1.0); Monocytes % (A) 5 %; Neutrophils # (A) 7.1 k/uL (1.3-7.7); Neutrophils % (A) 71 %; Platelet Count 252 k/uL (150-450); RBC 4.09 m/uL (3.80-5.40); RDW 12.9 % (11.5-15.5)
[2018-03-14] MEDS: ENOXAPARIN 40 MG/0.4 ML SYRINGE SQ SCH (07:33)
[2018-03-14] MEDS: PANTOPRAZOLE 40 MG/10 ML VIAL IV SCH (07:33)
[2018-03-14 07:38] LABS: Potassium 3.5 mmol/L (3.5-5.1)
[2018-03-14] MEDS ORDERED: BISACODYL 5 MG TABLET.DR PO PRN (08:00)
[2018-03-14 08:40] VITALS: BP 136/78; PULSE 67; TEMP 98
--- NOTE | 2018-03-14 11:18 | P.DS ---
Providers Date of admission: 03/12/18 11:40 Expected date of discharge: 03/14/18 Attending physician: Armando Hernandez Consults: 03/12/18 15:37 Consult Physician Routine Consulting Provider: Yunior Bell Consult Reason/Comments: Medical management Do you want consulting provider notified?: Yes Primary care physician: Shiva Cartwright - Discharge Diagnosis(es) (1) Morbid obesity Patient was admitted 2 days ago for elective sleeve gastrectomy. Her postoperative upper GI shows no evidence of significant leak or obstruction. White blood cell count is normal today. She is tolerating liquids nicely at this time. Pain is well-controlled. She is hoping to go home today. Abdomen is soft nondistended with minimal tenderness in incision sites. Incisions clean and dry. We'll discharge today. Plan outpatient follow-up in 1 week. Current Visit: No Status: Acute Plan - Discharge Summary Discharge Rx Participant: Yes New Discharge Prescriptions: New Bisacodyl [Dulcolax] 5 mg PO DAILY PRN #10 tablet.dr PRN Reason: Constipation Hydrocodone/Acetaminophen [[place] 5-325] 1 - 2 each PO Q4HR PRN #14 tab PRN Reason: pain Omeprazole [PriLOSEC] 20 mg PO AC-BRKFST #90 cap Ondansetron Odt [Zofran Odt] 4 mg PO Q8HR PRN #9 tab PRN Reason: Nausea Simethicone 40 mg/0.6 ml Drops [Mylicon Drops] 40 mg PO PCHS PRN #30 ml PRN Reason: Gas No Action Venlafaxine HCl ER [Effexor XR] 150 mg PO HS Simvastatin [Zocor] 40 mg PO HS Pregabalin [Lyrica] 400 mg PO HS Levothyroxine Sodium [Tirosint] 100 mcg PO QAM Lansoprazole [Prevacid] 30 mg PO HS Hydrochlorothiazide 25 mg PO PC-LUNCH Cyclobenzaprine [Flexeril] 10 mg PO Q12HR PRN PRN Reason: Spasms Multivit with Calcium,Iron,Min [Women's Multivitamin] 1 tab PO DAILY Calcium Citrate 1,200 mg PO DAILY Biotin 5 mg PO DAILY Discharge Medication List Hydrochlorothiazide 25 mg PO PC-LUNCH 09/08/17 [History] Lansoprazole [Prevacid] 30 mg PO HS 09/08/17 [History] Levothyroxine Sodium [Tirosint] 100 mcg PO QAM 09/08/17 [History] Pregabalin [Lyrica] 400 mg PO HS 09/08/17 [History] Simvastatin [Zocor] 40 mg PO HS 09/08/17 [History] Venlafaxine HCl ER [Effexor XR] 150 mg PO HS 09/08/17 [History] Cyclobenzaprine [Flexeril] 10 mg PO Q12HR PRN 12/29/17 [History] Biotin 5 mg PO DAILY 03/03/18 [History] Calcium Citrate 1,200 mg PO DAILY 03/03/18 [History] Multivit with Calcium,Iron,Min [Women's Multivitamin] 1 tab PO DAILY 03/03/18 [ History] Bisacodyl [Dulcolax] 5 mg PO DAILY PRN #10 tablet. 03/12/18 [Rx] Hydrocodone/Acetaminophen [[place] 5-325] 1 - 2 each PO Q4HR PRN #14 tab 03/12/18 [Rx] Omeprazole [PriLOSEC] 20 mg PO AC-BRKFST #90 cap 03/12/18 [Rx] Ondansetron Odt [Zofran Odt] 4 mg PO Q8HR PRN #9 tab 03/12/18 [Rx] Simethicone 40 mg/0.6 ml Drops [Mylicon Drops] 40 mg PO PCHS PRN #30 ml [Rx] Follow up Appointment(s)/Referral(s): [facility],. [NON-STAFF] - 03/23/18 Patient Instructions/Handouts: Laparoscopic Hiatal Hernia Repair (DC), Laparoscopic Sleeve Gastrectomy (DC)
--- NOTE | 2018-03-14 17:31 | P.PN ---
Subjective I was asked to reevaluate the patient before discharge and recommendations regarding antidepressive medications. Patient was on HIDA for thiazide upon admission and her blood pressure remained stable without that medication and do not believe she requires that medication anymore. I did grow thiazide will be discontinued rest of the medications can be continued all her discharge medications were reviewed. Patient is feeling well. Insert Constitutional: Denied any fatigue denied any fever. Cardio vascular: denied any chest pain, palpitations Gastrointestinal denied any nausea vomiting Pulmonary: Denied any shortness of breath cough Neurologic denied any new focal deficits Objective - Vital Signs Vital signs: Vital Signs Temp 98 F 03/14/18 07:49 Pulse 67 03/14/18 07:49 Resp 18 03/14/18 07:49 BP 136/78 03/14/18 07:49 Pulse Ox 98 03/14/18 07:49 Intake & Output 03/13/18 03/14/18 03/14/18 18:59 06:59 18:59 Intake Total 160 580 Balance 160 580 Weight 129.274 kg 129.274 kg Intake: Intake, IV Titration 160 Amount Lactated Ringers 1,000 ml 160 @ 20 mls/hr IV .Q24H DONELL Rx#:[id number] Oral 580 Other: # Voids 1 - Exam PHYSICAL EXAMINATION: GENERAL: The patient is alert and oriented x3, not in any acute distress. Well developed, well nourished. HEENT: Pupils are round and equally reacting to light. EOMI. No scleral icterus. No conjunctival pallor. Normocephalic, atraumatic. No pharyngeal erythema. No thyromegaly. CARDIOVASCULAR: S1 and S2 present. No murmurs, rubs, or gallops. PULMONARY: Chest is clear to auscultation, no wheezing or crackles. ABDOMEN: Soft, nontender, nondistended, normoactive bowel sounds. No palpable organomegaly. MUSCULOSKELETAL: No joint swelling or deformity. EXTREMITIES: No cyanosis, clubbing, or pedal edema. NEUROLOGICAL: Gross neurological examination did not reveal any focal deficits. SKIN: No rashes. - Labs CBC & Chem 7: 03/14/18 06:52 03/14/18 06:52 Assessment and Plan Plan: -Hypertension: Management as mentioned above -Depression and anxiety -Hyperlipidemia -fibromyalgia -Obstructive sleep apnea uses CPAP machine Have an irritable bowel syndrome -Peripheral neuropathy -Morbid obesity and patient is status post sleeve gastrectomy and hernia repair. For above-mentioned other chronic medical problems patient can be resumed and continued on her home medications and patient will follow with Dr. Cartwright as an outpatient in about a week
== END 2018-03-14 16:00 | disposition home or self-care (01) | DRG 621 ==
LOC: 2ORMAIN 11:40 → 3SUR 15:39
PROVIDERS: ADMIT Surgery; ATTEND Surgery
PROC: 0BQT4ZZ Repair Diaphragm, Percutaneous Endoscopic Approach (ICD-10-PCS; 2018-03-12)
PROC: 0DB64Z3 Excision of Stomach, Percutaneous Endoscopic Approach, Vertical (ICD-10-PCS; principal; 2018-03-12 14:00)
DX: E66.01 Morbid (severe) obesity due to excess calories (principal); D89.89 Other specified disorders involving the immune mechanism, not elsewhere classified; G62.9 Polyneuropathy, unspecified; E03.9 Hypothyroidism, unspecified; E78.5 Hyperlipidemia, unspecified; F32.9 Major depressive disorder, single episode, unspecified; F41.9 Anxiety disorder, unspecified; G47.33 Obstructive sleep apnea (adult) (pediatric); I10 Essential (primary) hypertension; J32.9 Chronic sinusitis, unspecified; K21.9 Gastro-esophageal reflux disease without esophagitis; K44.9 Diaphragmatic hernia without obstruction or gangrene; K58.9 Irritable bowel syndrome, unspecified; M19.90 Unspecified osteoarthritis, unspecified site; M79.7 Fibromyalgia; G50.0 Trigeminal neuralgia; Z68.39 Body mass index [BMI] 39.0-39.9, adult; Z79.899 Other long term (current) drug therapy; Z79.890 Hormone replacement therapy; Z87.442 Personal history of urinary calculi; Z90.49 Acquired absence of other specified parts of digestive tract; Z98.51 Tubal ligation status; Z91.048 Other nonmedicinal substance allergy status; Z82.49 Family history of ischemic heart disease and other diseases of the circulatory system; Z81.8 Family history of other mental and behavioral disorders; Z82.69 Family history of other diseases of the musculoskeletal system and connective tissue
CPT/HCPCS: 74240; 80051; 81025; 82310; 82565; 83735; 84100; 84520; 85025; 88307; 94640; 94760; 94762

== ENCOUNTER → 2018-03-23 | Outpatient (CLI) | payer MEDICARE ==
[2018-03-23 14:43] VITALS: BP 119/80; PULSE 76; RESP 16; TEMP 98.7; BMI 38.5
--- NOTE | 2018-03-23 14:57 | P.BASOAP ---
Subjective Progress Note Date: 03/23/18 Principal diagnosis: Morbid obesity Patient doing well today. Minimal discomfort at her supraumbilical incision site. Tolerating diet. 60 ounces or more per day of liquids. Approximate 60 g of protein per day. She had nausea on one occasion. She is not taking Zofran. No heartburn. No vomiting. 1 episode of dysphagia to putting. No fevers. Heart rate is normal today. Objective - Vital Signs Vital signs: Vital Signs Temp 98.7 F 03/23/18 14:41 Pulse 76 03/23/18 14:41 Resp 16 03/23/18 14:41 BP 119/80 03/23/18 14:41 Pulse Ox Intake & Output 03/22/18 03/23/18 03/23/18 18:59 06:59 18:59 Weight 120.202 kg - Exam Abdomen: Soft, nondistended, nontender, incisions clean and dry Assessment/Plan (1) Morbid obesity Narrative/Plan: Continue dietary and exercise regimen. We'll see dietitian today. Follow-up 2 weeks. We'll check one month labs at that time. Continue antiacids for now. Plan: Date: 03/23/18 Initial Weight: 127.868 kg Initial BMI: 41.0 Current Weight: 120.202 kg Current BMI: 38.5 Type of Surgery: Total Volume in Band: Previous Volume: Volume Removed: Volume Added: Band Size:
== END | disposition home or self-care (01) ==
LOC: BARWHC3 14:29
PROVIDERS: ATTEND Surgery
DX: Z48.815 Encounter for surgical aftercare following surgery on the digestive system (principal); E66.01 Morbid (severe) obesity due to excess calories; Z68.38 Body mass index [BMI] 38.0-38.9, adult; Z98.84 Bariatric surgery status
CPT/HCPCS: 97803; G0463; 99211

== ENCOUNTER → 2018-04-06 | Outpatient (CLI) | payer MEDICARE ==
[2018-04-06 14:46] VITALS: BP 119/72; PULSE 75; RESP 16; TEMP 98.3; BMI 38.2
--- NOTE | 2018-04-06 15:20 | P.BASOAP ---
Subjective Progress Note Date: 04/06/18 Principal diagnosis: Morbid obesity Patient doing well at this time. The pain at the umbilicus has resolved. She is almost 1 month postop from her sleeve gastrectomy. 2 pound weight loss since her visit 2 weeks ago. She has had a few episodes of right upper quadrant pain. She is post cholecystectomy. Minimal nausea. No vomiting. No reflux. Still on proton pump inhibitors. Objective - Vital Signs Vital signs: Vital Signs Temp 98.3 F 04/06/18 14:43 Pulse 75 04/06/18 14:43 Resp 16 04/06/18 14:43 BP 119/72 04/06/18 14:43 Pulse Ox Intake & Output 04/05/18 04/06/18 04/06/18 18:59 06:59 18:59 Weight 119.295 kg - Exam Abdomen: Soft, nontender, nondistended Assessment/Plan (1) Morbid obesity Narrative/Plan: Patient doing well at this time. We'll see the dietitian today. We'll check one month labs at this time. Follow-up evaluation one month. Plan: Date: 04/06/18 Initial Weight: 127.868 kg Initial BMI: 41.0 Current Weight: 119.295 kg Current BMI: 38.2 Type of Surgery: Total Volume in Band: Previous Volume: Volume Removed: Volume Added: Band Size:
== END | disposition home or self-care (01) ==
LOC: BARWHC3 14:31
PROVIDERS: ATTEND Surgery
DX: Z09 Encounter for follow-up examination after completed treatment for conditions other than malignant neoplasm (principal); E66.01 Morbid (severe) obesity due to excess calories; R11.0 Nausea; R10.11 Right upper quadrant pain; Z90.49 Acquired absence of other specified parts of digestive tract; Z98.84 Bariatric surgery status; Z68.38 Body mass index [BMI] 38.0-38.9, adult
CPT/HCPCS: 97803; G0463; 99211

== ENCOUNTER → 2018-05-07 | Outpatient (CLI) | payer MEDICARE ==
[2018-05-07 10:45] LABS: HCT 40.3 % (34.0-46.0); HGB 14.2 gm/dL (11.4-16.0); MCH 31.8 pg (25.0-35.0); MCHC 35.2 g/dL (31.0-37.0); MCV 90.4 fL (80.0-100.0); Mean Platelet Volume 7.3; Platelet Count 246 k/uL (150-450); RBC 4.45 m/uL (3.80-5.40); RDW 12.6 % (11.5-15.5); WBC 8.5 k/uL (3.8-10.6)
[2018-05-07 11:03] LABS: ALT 36 U/L (9-52); AST 19 U/L (14-36); Albumin 4.2 g/dL (3.5-5.0); Alkaline Phosphatase 60 U/L (38-126); Anion Gap 10 mmol/L; Blood Urea Nitrogen 12 mg/dL (7-17); Calcium 9.4 mg/dL (8.4-10.2); Carbon Dioxide 25 mmol/L (22-30); Chloride 106 mmol/L (98-107); Glucose 79 mg/dL (74-99); Potassium 4.5 mmol/L (3.5-5.1); Sodium 141 mmol/L (137-145); Total Bilirubin 0.5 mg/dL (0.2-1.3); Total Protein 6.5 g/dL (6.3-8.2)
[2018-05-07 17:20] LABS: Vitamin D 25 Hydroxy 28.8 ng/mL (30.0-100.0)
[2018-05-07 17:37] LABS: Folate, Serum >24.0 ng/mL
== END | disposition home or self-care (01) ==
LOC: LABPAT 10:12 → LABWHC1 10:12
PROVIDERS: ATTEND Surgery
DX: E55.9 Vitamin D deficiency, unspecified (principal); K90.89 Other intestinal malabsorption
CPT/HCPCS: 80053; 82306; 82607; 82746; 83540; 84425; 85027

== ENCOUNTER → 2018-05-11 | Outpatient (CLI) | payer MEDICARE ==
[2018-05-11 14:41] VITALS: BP 113/80; PULSE 94; TEMP 98.1; BMI 35.6
--- NOTE | 2018-05-11 16:35 | P.BASOAP ---
Subjective Progress Note Date: 05/11/18 Principal diagnosis: Morbid obesity Patient returns with an excellent weight loss. Surgery on 03/12. 19 pound weight loss since last visit. The right upper quadrant pain she was having intermittently has decreased. She describes it as an occasional soreness with exercise now. She says she has intermittent pains in the right and left flank at times. These are not daily episodes. She still is on antiacids. Heartburn only one time yesterday. No vomiting. Objective - Vital Signs Vital signs: Vital Signs Temp 98.1 F 05/11/18 14:40 Pulse 94 05/11/18 14:40 Resp BP 113/80 05/11/18 14:40 Pulse Ox Intake & Output 05/10/18 05/11/18 05/11/18 18:59 06:59 18:59 Weight 110.994 kg - Exam Abdomen: Soft, nontender, nondistended Assessment/Plan (1) Morbid obesity Narrative/Plan: Continue antiacid therapy. We'll check three-month labs next visit. Monitor patient's complaints of flank pain. Plan: Date: 05/11/18 Initial Weight: 127.868 kg Initial BMI: 41.0 Current Weight: 110.994 kg Current BMI: 35.6 Type of Surgery: Total Volume in Band: Previous Volume: Volume Removed: Volume Added: Band Size:
== END | disposition home or self-care (01) ==
LOC: BARWHC3 13:52
PROVIDERS: ATTEND Surgery
DX: E66.01 Morbid (severe) obesity due to excess calories (principal); Z79.899 Other long term (current) drug therapy; Z68.35 Body mass index [BMI] 35.0-35.9, adult
CPT/HCPCS: 99211

== ENCOUNTER → 2018-07-13 | Outpatient (CLI) | payer MEDICARE ==
[2018-07-13 16:33] VITALS: BP 111/67; PULSE 81; RESP 16; TEMP 98.8; BMI 32.8
[2018-07-13 17:49] LABS: Basophils % (A) 0 %; Eosinophils # (A) 0.1 k/uL (0-0.7); Eosinophils % (A) 1 %; HCT 41.2 % (34.0-46.0); Lymphocytes # (A) 3.1 k/uL (1.0-4.8); Lymphocytes % (A) 42 %; MCH 30.7 pg (25.0-35.0); MCHC 33.9 g/dL (31.0-37.0); MCV 90.6 fL (80.0-100.0); Mean Platelet Volume 7.1; Monocytes # (A) 0.4 k/uL (0-1.0); Monocytes % (A) 5 %; Neutrophils # (A) 3.5 k/uL (1.3-7.7); Neutrophils % (A) 49 %; Platelet Count 284 k/uL (150-450); RBC 4.55 m/uL (3.80-5.40); RDW 12.6 % (11.5-15.5); WBC 7.2 k/uL (3.8-10.6)
[2018-07-13 18:31] LABS: ALT 51 U/L (9-52); AST 32 U/L (14-36); Albumin 4.4 g/dL (3.5-5.0); Alkaline Phosphatase 69 U/L (38-126); Anion Gap 9 mmol/L; Blood Urea Nitrogen 14 mg/dL (7-17); Calcium 9.3 mg/dL (8.4-10.2); Carbon Dioxide 27 mmol/L (22-30); Chloride 106 mmol/L (98-107); Glucose 91 mg/dL (74-99); Potassium 4.4 mmol/L (3.5-5.1); Sodium 142 mmol/L (137-145); Total Bilirubin 0.5 mg/dL (0.2-1.3); Total Protein 7.1 g/dL (6.3-8.2)
[2018-07-13 18:33] LABS: T4, Free (Free Thyroxine) 1.14 ng/dL (0.78-2.19)
--- NOTE | 2018-07-13 23:21 | P.BASOAP ---
Subjective Progress Note Date: 07/13/18 Principal diagnosis: Morbid obesity Patient returns since her last visit in April. Complaining of intermittent episodes of dysphagia. Most recently had emesis to a chicken wrap. She did stop her antiacids but started them again because of mild reflux. Mild skin irritation beneath her pannus. She is happy with her progress. Objective - Vital Signs Vital signs: Vital Signs Temp 98.8 F 07/13/18 16:30 Pulse 81 07/13/18 16:30 Resp 16 07/13/18 16:30 BP 111/67 07/13/18 16:30 Pulse Ox Intake & Output 07/13/18 07/13/18 07/14/18 06:59 18:59 06:59 Weight 102.257 kg - Exam Abdomen: Soft, nontender, nondistended - Labs CBC & Chem 7: 07/13/18 17:25 07/13/18 17:25 Assessment/Plan (1) Morbid obesity Narrative/Plan: Continue dietary and exercise regimen. Continue antiacid therapy. Follow-up 1- 2 months. Plan: Date: 07/13/18 Initial Weight: 127.868 kg Initial BMI: 41.0 Current Weight: 102.257 kg Current BMI: 32.8 Type of Surgery: Total Volume in Band: Previous Volume: Volume Removed: Volume Added: Band Size:
[2018-07-14 02:38] LABS: Vitamin D 25 Hydroxy 40.1 ng/mL (30.0-100.0)
[2018-07-14 02:52] LABS: Folate, Serum >24.0 ng/mL
== END | disposition home or self-care (01) ==
LOC: BARWHC3 15:09
PROVIDERS: ATTEND Surgery
DX: E66.01 Morbid (severe) obesity due to excess calories (principal); L65.9 Nonscarring hair loss, unspecified; E55.9 Vitamin D deficiency, unspecified; Z68.32 Body mass index [BMI] 32.0-32.9, adult
CPT/HCPCS: 84439; 84425; 80053; 82607; 82728; 82746; 83540; 84443; 85025; 82306; 36415; G0463; 97803; 99211

== ENCOUNTER → 2018-08-24 | Outpatient (CLI) | payer MEDICARE ==
[2018-08-24 14:00] VITALS: BP 114/67; PULSE 75; RESP 16; TEMP 98.8; BMI 31.3
--- NOTE | 2018-08-24 14:29 | P.BASOAP ---
Subjective Progress Note Date: 08/24/18 Principal diagnosis: Morbid obesity Patient returns today for follow-up evaluation. Doing well. 10 pound weight loss since last visit. She has had 1 episode of emesis since last visit. She is due for 6 month labs. Denies heartburn. Some rash beneath skin folds. Objective - Vital Signs Vital signs: Vital Signs Temp 98.8 F 08/24/18 13:58 Pulse 75 08/24/18 13:58 Resp 16 08/24/18 13:58 BP 114/67 08/24/18 13:58 Pulse Ox Intake & Output 08/23/18 08/24/18 08/24/18 18:59 06:59 18:59 Weight 97.551 kg - Exam Abdomen: Soft, nontender, nondistended Assessment/Plan (1) Morbid obesity Narrative/Plan: Continue dietary and exercise regimen. Follow-up 4-6 weeks. Dietary evaluation today. Check 6 month labs. Plan: Date: 08/24/18 Initial Weight: 127.868 kg Initial BMI: 41.0 Current Weight: 97.551 kg Current BMI: 31.3 Type of Surgery: Total Volume in Band: Previous Volume: Volume Removed: Volume Added: Band Size:
[2018-08-24 15:33] LABS: HCT 37.8 % (34.0-46.0); HGB 12.9 gm/dL (11.4-16.0); MCH 31.4 pg (25.0-35.0); MCHC 34.2 g/dL (31.0-37.0); MCV 91.7 fL (80.0-100.0); Mean Platelet Volume 7.5; Platelet Count 239 k/uL (150-450); RBC 4.13 m/uL (3.80-5.40); RDW 12.6 % (11.5-15.5); WBC 8.3 k/uL (3.8-10.6)
[2018-08-24 15:53] LABS: ALT 21 U/L (9-52); AST 19 U/L (14-36); Alkaline Phosphatase 63 U/L (38-126); Anion Gap 9 mmol/L; Blood Urea Nitrogen 13 mg/dL (7-17); Calcium 9.1 mg/dL (8.4-10.2); Carbon Dioxide 26 mmol/L (22-30); Chloride 107 mmol/L (98-107); Glucose 99 mg/dL (74-99); Potassium 4.1 mmol/L (3.5-5.1); Sodium 142 mmol/L (137-145); Total Bilirubin 0.4 mg/dL (0.2-1.3); Total Protein 6.7 g/dL (6.3-8.2)
[2018-08-24 19:37] LABS: Vitamin D 25 Hydroxy 47.1 ng/mL (30.0-100.0)
== END | disposition home or self-care (01) ==
LOC: BARWHC3 13:43
PROVIDERS: ATTEND Surgery
DX: E66.01 Morbid (severe) obesity due to excess calories (principal); Z68.31 Body mass index [BMI] 31.0-31.9, adult; K90.9 Intestinal malabsorption, unspecified; E55.9 Vitamin D deficiency, unspecified
CPT/HCPCS: 84425; 80053; 82607; 83540; 85027; 82306; 97803; 36415; G0463; 99211

== ENCOUNTER → 2018-10-28 | Outpatient (CLI) | payer MEDICARE ==
--- NOTE | 2018-10-28 13:00 | MR ---
MRI CERVICAL SPINE: CLINICAL HISTORY: Headache and severe constant Neck pain causing pain or weakness into both arms and fingers for over 10 years per patient, degeneration of cervical disks per order. TECHNIQUE: Multiplanar, multisequence imaging of the cervical spine is performed without IV contrast. COMPARISON: MRI cervical spine December 03, 2011. FINDINGS: Sagittal images of the cervical spine show the craniocervical junction to remain within nor mal limits. The cervical and upper thoracic spinal cord is normal in course, caliber, and signal. V ertebral alignment is stable and anatomic. The vertebral body and intravertebral disk heights are no rmal. Small posterior disc herniation C5-C6 level is redemonstrated on sagittal images. The bone carmen ow signal intensity is within normal limits. Axial images show the C2-C3, C3-C4, and C4-C5 levels all to appear within normal limits. Axial images at the C5-C6 level show left paracentral disc protrusion mildly effacing anterior thecal sac on axial image 24, bilateral neural foramina are patent. This is slightly more prominent on curr ent study versus prior. Axial images at C6-C7 and C7-T1 levels remain within normal limits. IMPRESSION: Slightly more prominent disc herniation C5-C6 level noted. No new disc herniations are ev ident.
== END | disposition home or self-care (01) ==
LOC: RADMRIMAIN 10:41
PROVIDERS: ATTEND Family Medicine
DX: M50.222 Other cervical disc displacement at C5-C6 level (principal)
CPT/HCPCS: 72141

== ENCOUNTER → 2018-11-23 | Outpatient (CLI) | payer MEDICARE ==
[2018-11-23 16:02] VITALS: BP 129/76; PULSE 74; RESP 16; TEMP 98.5; BMI 29.8
--- NOTE | 2018-11-23 16:38 | P.BASOAP ---
Subjective Progress Note Date: 11/23/18 Principal diagnosis: Morbid obesity Patient returns today for follow-up visit. She was last seen in August. Since that time the patient has continued to lose weight she has down an additional 10 pounds. Slightly more energy. When she was here last time we noted her iron was low. She says she has had issues with iron deficiency anemia over the years. She started taking her iron again. Denies heartburn. Still having rash beneath the pannus. Objective - Vital Signs Vital signs: Vital Signs Temp 98.5 F 11/23/18 15:46 Pulse 74 11/23/18 15:46 Resp 16 11/23/18 15:46 BP 129/76 11/23/18 15:46 Pulse Ox Intake & Output 11/22/18 11/23/18 11/23/18 18:59 06:59 18:59 Weight 92.986 kg - Exam Abdomen: Soft, nontender, nondistended Assessment/Plan (1) Morbid obesity Narrative/Plan: Patient doing well at this time. Continue dietary and exercise regimen. Continue supplemental iron. Recheck labs in February. Follow-up 6-8 weeks. Plan: Date: 11/23/18 Initial Weight: 127.868 kg Initial BMI: 41.0 Current Weight: 92.986 kg Current BMI: 29.8 Type of Surgery: Vertical Sleeve Gastrectomy Total Volume in Band: Previous Volume: Volume Removed: Volume Added: Band Size:
== END | disposition home or self-care (01) ==
LOC: BARWHC3 15:28
PROVIDERS: ATTEND Surgery
DX: E66.01 Morbid (severe) obesity due to excess calories (principal); Z68.29 Body mass index [BMI] 29.0-29.9, adult; Z98.84 Bariatric surgery status
CPT/HCPCS: 99211

== ENCOUNTER → 2019-02-16 | Outpatient (CLI) | payer MEDICARE ==
[2019-02-16 14:28] LABS: HCT 38.7 % (34.0-46.0); HGB 13.7 gm/dL (11.4-16.0); MCH 31.4 pg (25.0-35.0); MCHC 35.5 g/dL (31.0-37.0); MCV 88.5 fL (80.0-100.0); Mean Platelet Volume 7.2; Platelet Count 293 k/uL (150-450); RBC 4.37 m/uL (3.80-5.40); RDW 13.1 % (11.5-15.5); WBC 7.4 k/uL (3.8-10.6)
[2019-02-16 22:21] LABS: Albumin 4.4 g/dL (3.80-4.90); Albumin/Globulin Ratio 2.32 (1.60-3.17); Calcium 9.2 mg/dL (8.7-10.3); Globulin 1.9 g/dL (1.6-3.3); Potassium 4.4 mmol/L (3.5-5.5); Total Bilirubin 0.3 mg/dL (0.2-1.2); Total Protein 6.3 g/dL (6.2-8.2)
[2019-02-16 22:24] LABS: Iron Saturation 23.92 (12.00-45.00)
[2019-02-16 22:33] LABS: Vitamin D 25 Hydroxy 55.7 ng/mL (30.0-100.0)
== END | disposition home or self-care (01) ==
LOC: LABWHC1 13:10
PROVIDERS: ATTEND Surgery
DX: D50.9 Iron deficiency anemia, unspecified (principal); E44.0 Moderate protein-calorie malnutrition; E55.9 Vitamin D deficiency, unspecified
CPT/HCPCS: 36415; 80053; 82306; 82607; 82728; 83540; 83550; 84134; 84425; 84443; 85027

== ENCOUNTER → 2019-02-22 | Outpatient (CLI) | payer MEDICARE ==
[2019-02-22 15:30] VITALS: BP 138/89; PULSE 88; RESP 16; TEMP 98; BMI 29.2
--- NOTE | 2019-02-22 16:38 | P.BASOAP ---
Subjective Progress Note Date: 02/22/19 Principal diagnosis: Morbid obesity Patient returns today for reevaluation. Patient has no new complaints. He has had some slight increased reflux symptoms recently. She is still taking her Prevacid daily. Occasionally will take a second dose of her Prevacid. Still describing a rash beneath her pannus. Recent labs normal. Objective - Vital Signs Vital signs: Vital Signs Temp 98.0 F 02/22/19 15:28 Pulse 88 02/22/19 15:28 Resp 16 02/22/19 15:28 BP 138/89 02/22/19 15:28 Pulse Ox Intake & Output 02/21/19 02/22/19 02/22/19 18:59 06:59 18:59 Weight 91.172 kg - Exam Abdomen: Soft, nontender, nondistended Assessment/Plan (1) Morbid obesity Narrative/Plan: Patient doing well at this time. Continue dietary and exercise regimen. Continue antiacid therapy. Follow-up 3-4 months. Plan: Date: 02/22/19 Initial Weight: 127.868 kg Initial BMI: 41.0 Current Weight: 91.172 kg Current BMI: 29.2 Type of Surgery: Total Volume in Band: Previous Volume: Volume Removed: Volume Added: Band Size:
== END | disposition home or self-care (01) ==
LOC: BARWHC3 14:29
PROVIDERS: ATTEND Surgery
DX: E66.01 Morbid (severe) obesity due to excess calories (principal); Z68.29 Body mass index [BMI] 29.0-29.9, adult
CPT/HCPCS: 99211

== ENCOUNTER → 2019-08-05 | Outpatient (CLI) | payer MEDICARE ==
[2019-08-05 13:59] VITALS: BP 111/77; PULSE 74; RESP 18; TEMP 98.3; BMI 27.6
--- NOTE | 2019-08-05 14:36 | P.GSHP ---
History of Present Illness H&P Date: 08/05/19 Chief Complaint: lump in the left breast Jessica is a 39-year-old white female who presents for breast evaluation. She had a bilateral mammogram performed on [id number] which was benign BIRADS 1 however an ultrasound was performed of the left breast. This was done on the same date and was also noted to be BIRADS 4 and an routine screening mammogram of both breasts in 1 year was recommended. The patient on a routine examination was noted to have some increased nodularity in the left breast in the upper outer quadrant area. She states she has had nodularity in the past for which at needle aspiration has been done and she was told she had some fatty tumors in the breast. The patient states she can feel the area of nodularity which was brought to her attention but is not anything that is changed. She denies any pain in her breast. She denies any change in the size of the nodularity. She denies any nipple discharge or skin changes. The patient has not had any history of recent trauma or infection of the breast. The patient does not drink caffeinated beverages. She does not smoke and is not exposed to secondhand smoke. She does not eat chocolate. She had bariatric surgery approximately a year ago and lost 115 pounds. Patient did develop bilateral mastitis when she breast fed. The last and she breast-fed was approximately 10 years ago. Family History: 1. maternal aunt and uncle: lung cancer heavy smokers Hormonal history: Menarche:17 , breast fed: yes, age at first : 23 regular periods alblation and a tubal after pregnancies BCP:5 years off for 4 years hormones: none Surgical history: 1. Tubal ligation 2. Uterine ablation 3. Left knee surgery 4. gastric sleeve 5. kidney stone removal 6. sinus surgery 7. gallbladder Medical history: 1. fibromyalgia 2. Occipital neuralgia, trigeminal neuralgia 3. Arthritis left knee 4. Hypothyroid 5. Chronic sinusitis Social history: Smoke: Negative Alcohol: Negative Drugs: Negative - Constitutional Constitutional: Denies chills - EENT Eyes: denies blurred vision, denies pain Ears: bilateral: decreased hearing (sinus fullness), deny: tinnitus Ears, nose, mouth and throat: Reports sinus pain, Reports sinus pressure - Breasts Breasts: bilateral: as per HPI - Cardiovascular Cardiovascular: Denies chest pain, Denies shortness of breath - Respiratory Respiratory: Denies cough, Denies 7 - Gastrointestinal Comment: IBS Gastrointestinal: Denies abdominal pain, Denies diarrhea, Denies nausea, Denies vomiting - Genitourinary (Female) Genitourinary: Reports kidney stones - Menstruation Menstruation: Reports period normal - Musculoskeletal Musculoskeletal: Reports myalgias - Integumentary Integumentary: Denies pruritus, Denies rash - Neurological Comment: numb the left side of the body Neurological: Reports numbness - Psychiatric Psychiatric: Reports anxiety, Reports depression - Endocrine Comment: Hypothyroid Endocrine: Reports weight change - Hematologic/Lymphatic Comment: none - Allergic/Immunologic Allergic/Immunologic: Reports seasonal allergies Past Medical History Past Medical History: Fibromyalgia, GERD/Reflux, Hyperlipidemia, Hypertension, Neurologic Disorder, Sleep Apnea/CPAP/BIPAP, Thyroid Disorder Additional Past Medical History / Comment(s): IBS, Hiatial hernia, DDD, occipital/trigeminal neuralgia, kidney stone, auto-immune disorder, chronic sinusitis, multiple nueopathys of the extremities History of Any Multi-Drug Resistant Organisms: None Reported Past Surgical History: Bariatric Surgery, Cholecystectomy, Orthopedic Surgery, Tubal Ligation, Uterine Ablation Additional Past Surgical History / Comment(s): Left knee arthroscopy (Aug 2017) ; Sinus surgery (2014)kidney stone removal, laparoscopic sleeve gastrectomy 03-12-18 Past Anesthesia/Blood Transfusion Reactions: Postoperative Nausea & Vomiting (PONV) Additional Past Anesthesia/Blood Transfusion Reaction / Comment(s): does well with zofran prophylaxis and has needed Benadryl for flushing Past Psychological History: Anxiety, Depression Smoking Status: Never smoker Past Alcohol Use History: None Reported Past Drug Use History: None Reported - Past Family History Mother Family Medical History: No Reported History Father Family Medical History: Congestive Heart Failure (CHF), Fibromyalgia Additional Family Medical History / Comment(s): at age 42 from CHF, mental disorders Medications and Allergies Home Medications Medication Instructions Recorded Confirmed Type Lansoprazole [Prevacid] 30 mg PO HS 09/08/17 08/05/19 History Levothyroxine Sodium [Tirosint] 100 mcg PO QAM 09/08/17 08/05/19 History Venlafaxine HCl ER [Effexor XR] 150 mg PO HS 09/08/17 08/05/19 History Calcium Citrate 1,200 mg PO DAILY 03/03/18 08/05/19 History Multivit with Calcium,Iron,Min 1 tab PO DAILY 03/03/18 08/05/19 History [Women's Multivitamin] Biotin 5,000 mcg PO DAILY 08/05/19 08/05/19 History Allergies Allergy/AdvReac Type Severity Reaction Status Date / Time tide Allergy swelling Uncoded 08/05/19 13:28 and rash Surgical - Exam Vital Signs Temp Pulse Resp BP Pulse Ox 98.3 F 74 18 111/77 99 08/05/19 13:38 08/05/19 13:38 08/05/19 13:38 08/05/19 13:38 08/05/19 13:38 BMI 27.6 - General well developed, well nourished, no distress - Eyes normal ocular movement, no icteric - ENT no hearing loss, no congestion - Neck no masses, trachea midline - Respiratory normal respiratory effort, clear to auscultation - Cardiovascular Rhythm: regular Heart Sounds: normal: S1, S2 - Abdomen Abdomen: soft, non tender, no guarding, no rigid, no rebound - Integumentary normal turgor multiple tattoos - Neurologic no disoriented, no combative - Musculoskeletal normal gait, normal posture - Psychiatric oriented to time, oriented to person, oriented to place, speech is normal, memory intact breast exam: Right breast: Multiple positional exam fibrocystic changes no dominant masses or nodules of concern Right axilla: No adenopathy of concern Left breast: Multi-positional exam fibrocystic changes increase prominent tissue in the upper outer quadrant area without a discrete mass, prominent ribs Left axilla: No adenopathy of concern Results Mammogram and ultrasound report reviewed Assessment and Plan Assessment: Impression: 1. Fibrocystic breast changes 2. Increased prominent tissue upper outer quadrant left breast 3. Family history of cancer 4. Recent weight loss of over 100 pounds 5. Prominent ribs 6. Fibromyalgia 7. Possible neuralgia and trigeminal neuralgia 8. Hypothyroidism 9. Anxiety/depression Plan: 1. FNA prominent tissue upper outer quadrant of the left breast if this is not atypical will follow patient conservatively with repeat bilateral mammogram in April 2020 and physician exam at that time 2. Medical management of medical conditions At this time the patient does not have any clinical or radiographic evidence of malignancy in her breast. Cc: Dr. Cartwright
== END | disposition home or self-care (01) ==
LOC: WWCWWP 13:23
PROVIDERS: ATTEND Surgery
DX: Z53.9 Procedure and treatment not carried out, unspecified reason (principal)

== ENCOUNTER → 2019-09-22 | Outpatient (CLI) | payer MEDICARE ==
[2019-09-22 11:44] VITALS: BP 105/72; PULSE 88; RESP 18; TEMP 97.9; BMI 27.8
--- NOTE | 2019-09-22 11:55 | P.PCN ---
Date of Procedure: 09/22/19 Preoperative Diagnosis: increased prominent tissue left breast UOQ Postoperative Diagnosis: same Procedure(s) Performed: FNA area of concern Surgeon: Macey Michaels Pathology: other (breast cytology) Condition: stable Disposition: same day Indications for Procedure: fullness UOQ left breast Description of Procedure: The area of concern in the left breast was at the 2 o'clock position. This the upper outer quadrant region. The area was prepped using alcohol. A 22 needle on a 10 mL syringe was utilized to sample the area of concern. The needle was passed several times into the area of concern with negative pressure applied to the syringe. Sample was prepped and sent to pathology. Patient tolerated the procedure in stable condition. Patient will call next week for results. If this is atypical open biopsy will be performed. If this is not atypical I will see the patient in April with bilateral mammogram.
== END | disposition home or self-care (01) ==
LOC: WWCWWP 10:48
PROVIDERS: ATTEND Surgery
DX: N64.9 Disorder of breast, unspecified (principal)
CPT/HCPCS: 88173

== ENCOUNTER → 2019-10-04 | Outpatient (CLI) | payer MEDICARE ==
[2019-10-04 14:46] VITALS: BP 126/76; PULSE 71; RESP 16; TEMP 98.7; BMI 28.0
--- NOTE | 2019-10-04 14:46 | P.BASOAP ---
Subjective Progress Note Date: 10/04/19 Principal diagnosis: Morbid obesity Patient returns for 1.5 year postop visit. Doing well. Maintained weight at 201 for the last 6 months. Still taking daily antiacids. Denies nausea or vomiting. No heartburn while taking antiacids. Still having some skin irritation beneath pannus with skin tags that have developed. She is interested in seeing plastics regarding abdominoplasty. Objective - Exam Abdomen: Soft, nontender, nondistended Assessment/Plan (1) Morbid obesity Narrative/Plan: Patient doing well at this time. Continue dietary and exercise regimen. Co ntinue antiacids. We'll make arrangements for her to see plastic surgery for evaluation of panniculectomy. Follow-up 6 months. We'll check annual labs at that time. Plan: Date: Initial Weight: 127.868 kg Initial BMI: Current Weight: Current BMI: Type of Surgery: Total Volume in Band: Previous Volume: Volume Removed: Volume Added: Band Size:
== END | disposition home or self-care (01) ==
LOC: BARWHC3 13:51
PROVIDERS: ATTEND Surgery
DX: E66.01 Morbid (severe) obesity due to excess calories (principal)
CPT/HCPCS: 99211

== ENCOUNTER → 2020-04-06 | Outpatient (CLI) | payer MEDICARE ==
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
[2020-04-06 12:16] LABS: HCT 39.7 % (34.0-46.0); HGB 13.1 gm/dL (11.4-16.0); MCH 30.6 pg (25.0-35.0); MCHC 32.9 g/dL (31.0-37.0); MCV 93.1 fL (80.0-100.0); Mean Platelet Volume 7.5; Platelet Count 217 k/uL (150-450); RBC 4.26 m/uL (3.80-5.40); RDW 12.1 % (11.5-15.5); WBC 7.3 k/uL (3.8-10.6)
[2020-04-06 19:53] LABS: ALT 17 U/L (8-44); AST 19 U/L (13-35); African American GFR (CKD) 82.8 (60.0-200.0); Albumin/Globulin Ratio 1.86 (1.60-3.17); Alkaline Phosphatase 56 U/L (41-126); Calcium 9.2 mg/dL (8.7-10.3); Chloride 107 mmol/L (96-109); Globulin 2.2 g/dL (1.6-3.3); Glucose 75 mg/dL (70-110); Non-African American GFR(CKD) 71.4 (60.0-200.0); Potassium 4.5 mmol/L (3.5-5.5); Sodium 146 mmol/L (135-145); Total Bilirubin 0.5 mg/dL (0.3-1.2); Total Protein 6.3 g/dL (6.2-8.2)
[2020-04-06 20:08] LABS: Folate, Serum >24.0 ng/mL
== END | disposition home or self-care (01) ==
LOC: LABWHC1 09:38
PROVIDERS: ATTEND Surgery
DX: E66.01 Morbid (severe) obesity due to excess calories (principal); K90.89 Other intestinal malabsorption; E55.9 Vitamin D deficiency, unspecified
CPT/HCPCS: 36415; 80053; 82306; 82607; 82746; 84425; 84443; 85027

== ENCOUNTER → 2020-04-06 | Outpatient (CLI) | payer MEDICARE, OTHER ==
[2020-04-06 09:05] VITALS: BP 125/75; PULSE 106; RESP 20; TEMP 98.8; BMI 28.6
== END | disposition home or self-care (01) ==
LOC: BARWHC3 08:57
PROVIDERS: ATTEND Surgery
DX: Z48.815 Encounter for surgical aftercare following surgery on the digestive system (principal); Z98.84 Bariatric surgery status; E66.01 Morbid (severe) obesity due to excess calories
CPT/HCPCS: 99211

== ENCOUNTER → 2020-08-24 | Outpatient (CLI) | payer MEDICARE ==
--- NOTE | 2020-08-28 13:40 | MM ---
Reason for exam: screening (asymptomatic). Last mammogram was performed 1 year and 3 months ago. History: Taking hormonal contraceptives for 3 years. Physical Findings: A clinical breast exam by your physician is recommended on an annual basis and results should be correlated with mammographic findings. MG Screening Mammo w CAD Bilateral CC and MLO view(s) were taken. Prior study comparison: May 10, 2019, bilateral MG diagnostic mammo w CAD DENISSE. March 09, 2015, bilateral MG diagnostic mammo w CAD DENISSE. There are scattered fibroglandular densities. No significant changes when compared with prior studies. ASSESSMENT: Negative, BI-RAD 1 RECOMMENDATION: Routine screening mammogram of both breasts in 1 year.
== END | disposition home or self-care (01) ==
LOC: RADMAMWWP 12:06
PROVIDERS: ATTEND Family Medicine
DX: Z12.31 Encounter for screening mammogram for malignant neoplasm of breast (principal)
CPT/HCPCS: 77067

== ENCOUNTER → 2020-09-25 | Outpatient (CLI) | payer MEDICARE ==
[2020-09-25 14:01] VITALS: BP 134/74; PULSE 74; TEMP 98.1; BMI 28.5
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
== END | disposition home or self-care (01) ==
LOC: BARWHC3 13:01
PROVIDERS: ATTEND Surgery
DX: E66.01 Morbid (severe) obesity due to excess calories (principal); Z68.28 Body mass index [BMI] 28.0-28.9, adult
CPT/HCPCS: 99211

== ENCOUNTER → 2021-02-18 | Outpatient (CLI) | payer MEDICARE | END | disposition home or self-care (01) | LOC: RADMRIMAIN 08:57 | PROVIDERS: ATTEND Family Medicine | DX: M50.30 Other cervical disc degeneration, unspecified cervical region (principal) ==

== ENCOUNTER → 2021-02-26 | Outpatient (CLI) | payer MEDICARE ==
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
[2021-02-26 13:25] VITALS: BP 118/81; PULSE 83; RESP 16; TEMP 98.1; BMI 29.5
[2021-02-26 14:02] LABS: HCT 39.9 % (34.0-46.0); HGB 14.2 gm/dL (11.4-16.0); MCH 32.4 pg (25.0-35.0); MCHC 35.6 g/dL (31.0-37.0); MCV 91.2 fL (80.0-100.0); Mean Platelet Volume 6.8; Platelet Count 272 k/uL (150-450); RBC 4.38 m/uL (3.80-5.40); WBC 8.1 k/uL (3.8-10.6)
[2021-02-27 00:02] LABS: ALT 17 U/L (8-44); AST 18 U/L (13-35); African American GFR (CKD) 107.6 (60.0-200.0); Albumin/Globulin Ratio 2.15 (1.60-3.17); Alkaline Phosphatase 72 U/L (41-126); BUN/Creat Ratio 13.75 Ratio (12.00-20.00); Calcium 9.1 mg/dL (8.7-10.3); Carbon Dioxide 25.4 mmol/L (21.6-31.8); Chloride 107 mmol/L (96-109); Glucose 85 mg/dL (70-110); Iron 109 ug/dL (50-170); Non-African American GFR(CKD) 92.9 (60.0-200.0); Sodium 143 mmol/L (135-145); Total Bilirubin 0.4 mg/dL (0.2-1.2); Total Protein 6.3 g/dL (6.2-8.2)
[2021-02-27 00:24] LABS: Folate, Serum >24.0 ng/mL
== END ==
LOC: BARWHC3 12:59
PROVIDERS: ATTEND Surgery
DX: E66.01 Morbid (severe) obesity due to excess calories (principal); Z68.29 Body mass index [BMI] 29.0-29.9, adult; K90.89 Other intestinal malabsorption; E55.9 Vitamin D deficiency, unspecified; Z99.89 Dependence on other enabling machines and devices
CPT/HCPCS: 84425; 80053; 82607; 82746; 83540; 85027; 82306; G0463; 99211

== ENCOUNTER → 2021-03-13 | Outpatient (CLI) | payer MEDICARE ==
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
== END | disposition home or self-care (01) ==
LOC: RADMRIMAIN 18:17
PROVIDERS: ATTEND Family Medicine
DX: M47.812 Spondylosis without myelopathy or radiculopathy, cervical region (principal)
CPT/HCPCS: 72141

== ENCOUNTER → 2021-10-22 | Outpatient (CLI) | payer MEDICARE ==
[2021-10-22 13:20] VITALS: BP 138/45; PULSE 85; TEMP 98.2; BMI 29.5
--- NOTE | 2021-10-22 13:34 | P.BASOAP ---
Subjective Progress Note Date: 10/22/21 Principal diagnosis: Morbid obesity Patient returns for reevaluation. Doing well since last visit in February. Her Casas symptoms are mild. Still on omeprazole daily. She had her 3 year labs last visit which all looked normal. She says her insurance will not cover abdominal plasty and she cannot afford it so she is just leaving it alone for now. Her weight is unchanged at 212. Objective - Vital Signs Vital signs: Vital Signs Temp 98.2 F 10/22/21 13:16 Pulse 85 10/22/21 13:16 Resp BP 138/45 10/22/21 13:16 Pulse Ox Intake & Output 10/21/21 10/22/21 10/22/21 18:59 06:59 18:59 Weight 96.162 kg - Exam Abdomen: Soft, nontender, nondistended Assessment/Plan (1) Morbid obesity Narrative/Plan: Patient doing well 3.5 years after sleeve gastrectomy. Maintaining weight nicely. Continue antiacids. We'll plan recheck 6 months. Plan: Date: 10/22/21 Initial Weight: 127.868 kg Initial BMI: 39.3 Current Weight: 96.162 kg Current BMI: 29.5 Type of Surgery: Total Volume in Band: Previous Volume: Volume Removed: Volume Added: Band Size:
== END ==
LOC: BARWHC3 13:00
PROVIDERS: ATTEND Surgery
DX: E66.01 Morbid (severe) obesity due to excess calories (principal); Z68.29 Body mass index [BMI] 29.0-29.9, adult; Z88.8 Allergy status to other drugs, medicaments and biological substances
CPT/HCPCS: 99211

== ENCOUNTER → 2022-01-10 | Outpatient (CLI) | payer MEDICARE ==
--- NOTE | 2022-01-13 13:40 | MM ---
Reason for exam: screening (asymptomatic). Last mammogram was performed 1 year and 5 months ago. History: Cyst aspiration of the left breast, September 22, 2019. Taking hormonal contraceptives for 3 years. Physical Findings: A clinical breast exam by your physician is recommended on an annual basis and results should be correlated with mammographic findings. MG Screening Mammo w CAD Bilateral CC and MLO view(s) were taken. Prior study comparison: August 24, 2020, bilateral MG screening mammo w CAD. May 10, 2019, bilateral MG diagnostic mammo w CAD DENISSE. There are scattered fibroglandular densities. Finding: There are suspicious, equal, indistinct architectural distortion in the middle position of the right breast on MLO view. New finding since August 24, 2020. ASSESSMENT: Incomplete: need additional imaging evaluation, BI-RAD 0 RECOMMENDATION: Special view mammogram of the right breast. If lesion persists on supplemental views, image directed ultrasound is recommended. [facility] will attempt to contact patient to return for supplemental views and ultrasound if indicated.
== END | disposition home or self-care (01) ==
LOC: RADMAMWWP 09:04
PROVIDERS: ATTEND Family Medicine
DX: Z12.31 Encounter for screening mammogram for malignant neoplasm of breast (principal)
CPT/HCPCS: 77067

== ENCOUNTER → 2022-01-16 | Outpatient (CLI) | payer MEDICARE ==
--- NOTE | 2022-01-16 11:52 | MM ---
Reason for exam: additional evaluation requested from abnormal screening. Last mammogram was performed less than 1 month ago. History: Cyst aspiration of the left breast, September 22, 2019. Took hormonal contraceptives for 3 years. Physical Findings: A clinical breast exam by your physician is recommended on an annual basis and results should be correlated with mammographic findings. MG Work Up Mamm w CAD RT ML and spot compression MLO view(s) were taken of the right breast. Prior study comparison: January 10, 2022, bilateral MG screening mammo w CAD. August 24, 2020, bilateral MG screening mammo w CAD. There are scattered fibroglandular densities. There is no discrete abnormality including area of concern on compression and ML. No significant new findings when compared with previous films. These results were verbally communicated with the patient and result sheet given to the patient on 01/16/22. ASSESSMENT: Benign, BI-RAD 2 RECOMMENDATION: Return to routine screening mammogram schedule for both breasts.
== END | disposition home or self-care (01) ==
LOC: RADMAMWWP 08:38
PROVIDERS: ATTEND Family Medicine
DX: R92.8 Other abnormal and inconclusive findings on diagnostic imaging of breast (principal)
CPT/HCPCS: 77065

== ENCOUNTER → 2022-04-29 | Outpatient (CLI) | payer MEDICARE, OTHER ==
[2022-04-29 14:44] VITALS: BP 113/68; PULSE 89; RESP 16; BMI 29.9
--- NOTE | 2022-04-29 14:58 | P.BASOAP ---
Subjective Progress Note Date: 04/29/22 Principal diagnosis: Morbid obesity 41-year-old female returns for bariatric evaluation. Underwent sleeve gastrectomy February 2018. She was last seen in October of last year. She has gained 3 pounds. Feels well. Mild reflux. Taking lansoprazole daily. No dysphagia. No pain. She is due for annual blood work. She does have constipation at times treated with MiraLAX. No rectal bleeding or melena. No family history of colon cancer. Objective - Vital Signs Vital signs: Vital Signs Temp Pulse 89 04/29/22 14:40 Resp 16 04/29/22 14:40 BP 113/68 04/29/22 14:40 Pulse Ox FiO2 Intake & Output 04/28/22 04/29/22 04/29/22 18:59 06:59 18:59 Weight 97.522 kg - Exam Abdomen: Soft, nontender, nondistended Assessment/Plan (1) Morbid obesity Narrative/Plan: Patient doing well at this time. Continue dietary and exercise regimen. Continue antiacids as needed. Will check annual blood work. Recheck conical exam next February. Discussed options of colonoscopy for change in bowel habits. She will consider and notify me with her decision. Plan: Date: 04/29/22 Initial Weight: 127.868 kg Initial BMI: 39.3 Current Weight: 97.522 kg Current BMI: 29.9 Type of Surgery: Vertical Sleeve Gastrectomy Total Volume in Band: Previous Volume: Volume Removed: Volume Added: Band Size:
[2022-04-29 22:54] LABS: HCT 38.6 % (37.2-46.3); HGB 13.1 g/dL (12.0-15.0); MCH 30.8 pg (27.0-32.0); MCHC 33.9 g/dL (32.0-37.0); MCV 90.8 fL (80.0-97.0); NRBC Per 100 WBC 0 /100 WBCS (0.0-0.0); Platelet Count 265 X 10*3/uL (140-440); RBC 4.25 X 10*6/uL (4.10-5.20); RDW 11.9 % (11.5-14.5); WBC 7.31 X 10*3/uL (4.50-10.00)
[2022-04-30 00:20] LABS: ALT 9 U/L (8-44); AST 12 U/L (13-35); Albumin 4.6 g/dL (3.8-4.9); Albumin/Globulin Ratio 1.97 (1.60-3.17); Alkaline Phosphatase 78 U/L (41-126); BUN/Creat Ratio 13.73 Ratio (12.00-20.00); Blood Urea Nitrogen 11.6 mg/dL (9.0-27.0); Calcium 9.2 mg/dL (8.7-10.3); Chloride 103 mmol/L (96-109); Globulin 2.3 g/dL (1.6-3.3); Glucose 95 mg/dL (70-110); Iron 72 ug/dL (50-170); Non-African American GFR(CKD) 86.3 (60.0-200.0); Potassium 4.4 mmol/L (3.5-5.5); Sodium 140 mmol/L (135-145); Total Bilirubin <0.15 mg/dL (0.30-1.20); Total Protein 6.9 g/dL (6.2-8.2)
== END ==
LOC: BARWHC3 14:27
PROVIDERS: ATTEND Surgery
DX: E66.01 Morbid (severe) obesity due to excess calories (principal); K90.89 Other intestinal malabsorption; E55.9 Vitamin D deficiency, unspecified; Z68.29 Body mass index [BMI] 29.0-29.9, adult; Z98.84 Bariatric surgery status
CPT/HCPCS: 84425; 80053; 82607; 82746; 83540; 85027; 82306; G0463; 99211

== ENCOUNTER → 2023-02-17 | Outpatient (CLI) | payer MEDICARE ==
[2023-02-17 13:15] VITALS: BP 114/77; PULSE 61; RESP 16; TEMP 99; BMI 30.9
--- NOTE | 2023-02-17 14:02 | P.BASOAP ---
Subjective Progress Note Date: 02/17/23 Principal diagnosis: Morbid obesity 42-year-old female known to our service. Underwent sleeve gastrectomy 5 years ago. Complains of mild reflux symptoms at times. Symptoms controlled with daily Prevacid use. Has mild constipation as well and symptoms are controlled with MiraLAX daily. She is not interested in colonoscopy she states. Caloric intake approximately [id number] kiley per day. She is exercising daily. She has gained 7 pounds since she was seen in April of last year. Objective - Vital Signs Vital signs: Vital Signs Temp 99 F 02/17/23 13:13 Pulse 61 02/17/23 13:13 Resp 16 02/17/23 13:13 BP 114/77 02/17/23 13:13 Pulse Ox FiO2 Intake & Output 02/16/23 02/17/23 02/17/23 18:59 06:59 18:59 Weight 100.698 kg - Exam Abdomen: Soft, nontender, nondistended Assessment/Plan (1) Morbid obesity Narrative/Plan: Patient doing well after sleeve gastrectomy 5 years ago. Continue dietary and exercise regimen. May consider decreasing caloric intake further to see if this helps with her weight loss. Check annual labs. Follow-up 1 year. Plan: Date: 02/17/23 Initial Weight: 127.868 kg Initial BMI: 39.3 Current Weight: 100.698 kg Current BMI: 30.9 Type of Surgery: Vertical Sleeve Gastrectomy Total Volume in Band: Previous Volume: Volume Removed: Volume Added: Band Size:
== END ==
LOC: BARWHC3 13:06
PROVIDERS: ATTEND Surgery
DX: E66.01 Morbid (severe) obesity due to excess calories (principal); Z68.30 Body mass index [BMI] 30.0-30.9, adult; Z98.84 Bariatric surgery status; K21.9 Gastro-esophageal reflux disease without esophagitis; Z88.8 Allergy status to other drugs, medicaments and biological substances
CPT/HCPCS: 99211

== ENCOUNTER → 2023-03-09 | Outpatient (CLI) | payer MEDICARE ==
[2023-03-10 02:14] LABS: Basophils # (A) 0.04 X 10*3/uL (0.00-0.10); Basophils % (A) 0.6 %; Eosinophils # (A) 0.02 X 10*3/uL (0.04-0.35); Eosinophils % (A) 0.3 %; HCT 38.2 % (37.2-46.3); HGB 12.9 g/dL (12.0-15.0); Immature Grans, Automated 0.2 %; Lymphocytes # (A) 1.73 X 10*3/uL (0.90-5.00); Lymphocytes % (A) 26.2 %; MCH 32.5 pg (27.0-32.0); MCHC 33.8 g/dL (32.0-37.0); MCV 96.2 fL (80.0-97.0); Mean Platelet Volume 9.7 fL (9.5-12.2); Monocytes # (A) 0.41 X 10*3/uL (0.20-1.00); Monocytes % (A) 6.2 %; NRBC Per 100 WBC 0 /100 WBCS (0.0-0.0); Neutrophils % (A) 66.5 %; Platelet Count 269 X 10*3/uL (140-440); RBC 3.97 X 10*6/uL (4.10-5.20); RDW 12.7 % (11.5-14.5); WBC 6.61 X 10*3/uL (4.50-10.00)
[2023-03-10 02:24] LABS: % Iron Saturation 25.79 (12.00-45.00); Albumin 4.4 g/dL (3.8-4.9); Albumin/Globulin Ratio 1.91 (1.60-3.17); Anion Gap 9.7 mmol/L (10.00-18.00); BUN/Creat Ratio 11.44 Ratio (12.00-20.00); Blood Urea Nitrogen 10.3 mg/dL (9.0-27.0); Carbon Dioxide 24.3 mmol/L (20.0-27.5); Globulin 2.3 g/dL (1.6-3.3); Non-African American GFR(CKD) 79.4 (60.0-200.0); Potassium 4.4 mmol/L (3.5-5.5); Total Bilirubin 0.3 mg/dL (0.30-1.20); Total Protein 6.7 g/dL (6.2-8.2)
== END | disposition home or self-care (01) ==
LOC: LABWHC1 16:14
PROVIDERS: ATTEND Surgery
DX: E66.01 Morbid (severe) obesity due to excess calories (principal); E55.9 Vitamin D deficiency, unspecified; K90.89 Other intestinal malabsorption
CPT/HCPCS: 36415; 80053; 82306; 82607; 82746; 83036; 83540; 83550; 84425; 85025

== ENCOUNTER → 2024-02-24 | Outpatient (CLI) | payer MEDICARE ==
[2024-02-24 16:17] LABS: Basophils # (A) 0.06 X 10*3/uL (0.00-0.10); Basophils % (A) 0.8 %; Eosinophils # (A) 0.09 X 10*3/uL (0.04-0.35); Eosinophils % (A) 1.1 %; HCT 39.2 % (37.2-46.3); HGB 13.4 g/dL (12.0-15.0); Lymphocytes # (A) 2.83 X 10*3/uL (0.90-5.00); Lymphocytes % (A) 36.1 %; MCH 33.3 pg (27.0-32.0); MCHC 34.2 g/dL (32.0-37.0); MCV 97.3 FL (80.0-97.0); Mean Platelet Volume 9.6 FL (9.5-12.2); Monocytes # (A) 0.51 X 10*3/uL (0.20-1.00); Monocytes % (A) 6.5 %; NRBC Per 100 WBC 0 X 10*3/uL (0.00-0.01); Neutrophils # (A) 4.33 X 10*3/uL (1.80-7.70); Neutrophils % (A) 55.2 %; Platelet Count 304 X 10*3/uL (140-440); RBC 4.03 X 10*6/uL (4.10-5.20); RDW 12.3 % (11.5-14.5); WBC 7.84 X 10*3/uL (4.50-10.00)
[2024-02-24 16:29] LABS: LDL Cholesterol,Calculated 214.3 mg/dL (0.0-131.0)
--- NOTE | 2024-02-25 15:11 | MM ---
Reason for Exam: Screening (asymptomatic). Last mammogram was performed 2 year(s) and 2 month(s) ago. Patient History: Menarche at age 16. First Full-Term at age 23. Patient has history of breast feeding. Patient used Hormonal Contraceptives for 3 years. 09/22/2019, Cyst Aspiration on the Left side. Last menstrual period: 02/08/2024 Risk Values: Asia 5 year model risk: 0.5%. NCI Lifetime model risk: 8.1%. Prior Study Comparison: 08/24/2020 Bilateral Screening Mammogram, [facility]. 01/10/2022 Bilateral Screening Mammogram, [facility]. 01/16/2022 Right Diagnostic Mammogram, [facility]. Tissue Density: There are scattered areas of fibroglandular density. Findings: Analyzed By CAD. There is no suspicious group of microcalcifications or new suspicious mass in either breast. Overall Assessment: Negative, BI-RAD 1 Management: Screening Mammogram of both breasts in 1 year. . Patient should continue monthly self-breast exams. A clinical breast exam by your physician is recommended on an annual basis. This exam should not preclude additional follow-up of suspicious palpable abnormalities. Note on Asia scores and lifetime risk: 1. A Asia score greater than 3% is considered moderate risk. If this is the case, consider specialist referral to assess eligibility for a risk reducing agent. 2. If overall lifetime risk for the development of breast cancer is 20% or higher, the patient may qualify for future screening with alternating mammogram and breast MRI. Electronically signed and approved by: Wander Magana M.D. Radiologis
== END | disposition home or self-care (01) ==
LOC: RADMAMWWP 08:39
PROVIDERS: ATTEND Family Medicine
DX: Z12.31 Encounter for screening mammogram for malignant neoplasm of breast (principal); E61.1 Iron deficiency
CPT/HCPCS: 36415; 77067; 80061; 83036; 85025